=== PATIENT | male | born 1955 | race Caucasian/White ===

== ENCOUNTER → 2020-02-18 09:31 | Outpatient (BNVA) | payer OTHER, SELFPAY | PROVIDERS: PCP Internal Medicine; Referring Provider Internal Medicine; Visit Provider Nurse Practitioner | DX: K59.04 Chronic idiopathic constipation (principal); Z80.0 Family history of malignant neoplasm of digestive organs | CPT/HCPCS: 99214 ==

== ENCOUNTER → 2020-03-03 11:22 | Outpatient (BNVA) | payer OTHER, SELFPAY | PROVIDERS: PCP Internal Medicine; Visit Provider Nurse Practitioner | DX: K59.04 Chronic idiopathic constipation (principal); Z80.0 Family history of malignant neoplasm of digestive organs | CPT/HCPCS: 99212 ==

== ENCOUNTER 2020-10-13 08:04 | Emergency (ER) | payer OTHER, MEDICAID, SELFPAY ==
--- NOTE | ~2020-10-13 | XR_ITS ---
EXAMINATION: XR KNEE, RIGHT CLINICAL INFORMATION: Right knee pain status post trauma. COMPARISON: None TECHNIQUE: Four views of the right knee. FINDINGS: There is no acute fracture or dislocation. Mild medial femoral-tibial and patellofemoral degenerative joint changes are seen. There is a possible trace suprapatellar joint effusion. The soft tissues are unremarkable. XR/XR knee RT 4V IMPRESSION: Mild degenerative joint changes and possible trace suprapatellar joint effusion without definitive acute osseous abnormality.
[2020-10-13 08:33] VITALS: BP 142/86; PULSE 80; RESP 16; TEMP 36.7; O2SAT 98; BMI 31.3
--- NOTE | 2020-10-13 08:59 | ED_ITS ---
HPI - Fall General Chief Complaint: Fall Stated Complaint: KNEE INJ FELL IN SHOWER Time Seen by Provider: 10/13/20 08:30 Source: patient Mode of arrival: ambulatory Limitations: no limitations History of Present Illness HPI Narrative: Patient presents to ED for right knee pain. Patient states he was in the shower this morning and slipped and turn his right knee. Patient denies falling to the ground. Patient denies hitting head or loss of consciousness. Patient denies any popping sound in the knee. Patient states right knee pain on ambulation ever since. Related Data Previous Rx's Medication Instructions Recorded linaclotide 145 mcg capsule 145 mcg PO DAILY #30 cap 06/15/20 naproxen 500 mg PO BID PRN #20 tab 10/13/20 prednisone 40 mg PO DAILY #10 tab 10/13/20 Allergies Allergy/AdvReac Type Severity Reaction Status Date / Time ketoconazole Allergy Intermediate rash Verified 05/18/20 10:32 penicillin V Allergy Intermediate rash Verified 05/18/20 10:32 quetiapine Allergy Intermediate tachycardia Verified 05/18/20 10:32 Review of Systems Review of Systems: Yes all other systems are reviewed and are negative Constitutional: Constitutional: Reports as per HPI and Reports no additional constitutional complaints Eyes: Eyes: Reports as per HPI and Reports no additional eye complaints ENT: Reports system reviewed and no additional complaints, except as documented and Reports as per HPI Cardiovascular: Cardiovascular: Reports as per HPI and Reports no additional cardiovascular complaints Respiratory: Respiratory: Reports as per HPI and Reports no additional respiratory complaints Gastrointestinal: Gastrointestinal: Reports as per HPI and Reports no additional gastrointestinal complaints Genitourinary: Genitourinary: Reports no additional male genitourinary complaints and Reports as per HPI Musculoskeletal: Musculoskeletal: Reports no additional musculoskeletal complaints, Reports as per HPI and Reports arthralgias (Right knee) Neurologic: Reports system reviewed and no additional complaints, except as documented and Reports as per HPI Psychiatric: Psychiatric: Reports no additional psychiatric complaints and Reports as per HPI PMF Past Medical History Medical History (Updated 10/13/20 @ 09:12 by HOMER Gaytan) BPH (benign prostatic hyperplasia) Chronic back pain Chronic idiopathic constipation Cocaine use Depression with anxiety Fibromyalgia Impaired fasting glucose Insomnia Tubular adenoma of colon Surgical History (Updated 05/18/20 @ 10:31 by Ilda Davenport) H/O colonoscopy Family History Family History (Updated 03/03/20 @ 11:36 by ASH Le) Father Myocardial infarction Sister Colon cancer Kidney disease Brother Cirrhosis Sister Diabetes Brother Partial sight in both eyes Mother No problems noted. Social History Social History (Updated 03/03/20 @ 11:33 by ASH Le) Alcohol intake: never Use of substances other than those prescribed or required for medical reasons: No Advance Directives: Yes Advance Directives Information Provided: Yes Advance Directives on File: No Physical Exam Vital Signs: Vital Signs: Last Vital Signs Temp 98.0 F 10/13/20 08:33 Pulse 80 10/13/20 08:33 Resp 16 10/13/20 08:33 BP 142/86 H 10/13/20 08:33 Pulse Ox 98 10/13/20 08:33 Body Mass Index 31.3 Const: General: cooperative, healthy appearing, comfortable, no acute distress, well developed, alert, awake and Physically active Orientation/consciousness: patient oriented x3 HENMT: Head: Yes normal to inspection, Yes No palpable skull fracture present, Yes normocephalic and Yes atraumatic Eyes: General: appearance normal, both eyes and all related structures Neck: Neck: Yes normal visual inspection, Yes full ROM, Yes no lymphadenopathy, Yes no meningeal signs, Yes trachea midline, Yes supple and No tender Chest: Chest palpation & inspection: normal inspection of the chest and normal palpation of entire chest wall Resp: Effort & Inspection: normal respiratory effort and able to speak in complete sentences Auscultation: clear to auscultation bilaterally Cardio: Jugular venous distension: no JVD Heart sounds: S1 normal heart sound present and S2 normal heart sound present GI: Inspection: Yes normal to inspection and No abdominal wall ecchymosis Palpation (GI): Soft to palpation, not firm, nontender, no guarding and not rigid : General: No CVA tenderness and Yes no CVA tenderness Back/Spine/Pelvis: Back: no CVA tenderness, No CVA tenderness and No back tenderness Skin: General skin exam: no rashes or lesions noted and elasticity normal Neuro: General: patient oriented x3, gait normal, no meningeal signs and CN's II-XI intact bilaterally Cranial nerves: Yes CN's II-XII intact bilaterally Extrem: Other: Right lower extremity: Positive for medial knee tenderness on palpation with slight swelling. Negative for redness of knee or decreased range of motion of knee. Negative for hotness of knee. Negative for obvious deformity. Leg/ankle/ foot/femur, negative for tenderness, deformity, redness, hotness or open wound. Vascular/motor/neuro exam extremity intact. All other e xtremities normal General: Yes normal to inspection and Yes full ROM Psych: Appearance: grossly normal, well kempt and not disheveled Course Course Course Narrative: Patient was sent for right knee x-ray. Reevaluation(s) Reevaluation #1: Right knee negative for fracture but does show osteoarthritis and slight knee trace effusion. No indication for arthrocentesis. Patient was placed in [place]ino wrap. MDM - Fall MDM Narrative Medical decision making narrative: Knee sprain Discharge Plan Discharge Clinical Impression: Right knee sprain, Arthritis, Effusion of knee Patient Disposition: Home, Self-Care Instructions: Knee Sprain (ED), Arthritis (ED) Additional Instructions: Return to the ED for worsening knee pain, hardness, redness, increased swelling, inability to bend knee, fever, chills, leg swelling calf pain, chest pain, shortness of breath, paralysis of lower extremities, inability to walk, or any other concerning symptoms. Prescriptions: New naproxen 500 mg tablet 500 mg PO BID PRN (Reason: pain) Qty: 20 RF: 0 prednisone 20 mg tablet 40 mg PO DAILY Qty: 10 RF: 0 No Action linaclotide [Linzess] 145 mcg capsule 145 mcg PO DAILY Qty: 30 RF: 3 Referrals: Casper Espinoza MD [Physician] - 2 days (Right knee sprain. arthritis and mild knee effusion) Stand Alone Forms: Work/School Release Interventions: ED Discharge Assessment Last Done: 10/13/20 09:22 Discharge Date/Time: 10/13/20 09:26 Print Language: Colombian
== END 2020-10-13 09:26 | disposition home or self-care (01) ==
PROVIDERS: Emergency Provider Emergency Medicine Emergency Medical Services; PCP Internal Medicine
DX: S83.91XA Sprain of unspecified site of right knee, initial encounter (principal); W18.2XXA Fall in (into) shower or empty bathtub, initial encounter; M17.11 Unilateral primary osteoarthritis, right knee; M25.461 Effusion, right knee; Y93.E1 Activity, personal bathing and showering; Y92.031 Bathroom in apartment as the place of occurrence of the external cause; Y99.9 Unspecified external cause status
CPT/HCPCS: 73564; 99283; 99284

== ENCOUNTER → 2020-10-24 14:05 | Outpatient (BNVA) | payer OTHER, MEDICAID, SELFPAY | PROVIDERS: Visit Provider Physician Assistant | DX: M17.11 Unilateral primary osteoarthritis, right knee (principal) | CPT/HCPCS: 99202 ==

== ENCOUNTER 2021-02-06 09:34 | Emergency (ER) | payer OTHER, MEDICAID, SELFPAY ==
--- NOTE | ~2021-02-06 | CT_ITS ---
EXAMINATION: CT angio head neck CLINICAL INFORMATION: Neck pain and headaches. Evaluate for dissection. COMPARISON: No relevant prior imaging. TECHNIQUE: Word[employer] Developer images were obtained. A CT angiogram of the head and neck was performed in the arterial phase after the intravenous administration of 70 mL Omnipaque 350. Pre and delayed postcontrast images of the head were also obtained. MIP reconstructions were generated in multiple orientations at the acquisition workstation. Multiple three-dimensional surface rendered images and maximum intensity projection images were generated on a dedicated 3-D lab workstation. Arterial stenoses are measured in accordance with NASCET criteria or similar method if applicable. This CT examination was performed using dose optimization techniques as appropriate, including one or more of the following: Automated exposure control, iterative reconstruction, and adjustment of technique factors (mA and/or kVp) according to patient size (this includes techniques or standardized protocols for targeted exams where dose is matched to indication/reason for exam). Total exam dose-length product 2422 mGy-cm FINDINGS: Head: There is no acute intracranial hemorrhage or abnormal extra-axial collection. Postcontrast images reveal no abnormal mass or enhancement within the intracranial compartment. No intracranial mass effect midline shift. No abnormal extra-axial collection. Lateral and third ventricles are normal. No hydrocephalus. Garcia-white matter differentiation is preserved and there is no evidence of acute territorial infarct. The calvarium and skull base are intact. Mastoid air cells and middle ear cavities are well aerated. Mild paranasal sinus disease primarily affecting the ethmoid air cells and maxillary sinuses. CT angiogram neck: The aortic arch apex is normal. Origins of the major aortic branches are widely patent. Common carotid arteries and carotid bifurcations are patent. No stenosis of the extracranial internal carotid arteries. Cervical segments of the vertebral arteries as well as their origins are patent. CT angiogram head: Intracranial internal carotid arteries are patent. The intradural vertebral artery segments and basilar artery are patent. Anterior, middle, and posterior cerebral artery complexes are normal. No intracranial large vessel occlusion. Other: Soft tissues of the neck including the thyroid gland are normal. Visualized lung apices are clear. No acute osseous finding. Specifically no worrisome lytic or blastic osseous lesion. There is multilevel degenerative spondylosis of the cervical spine with at least mild canal stenosis at multiple levels. CT/CT angio head neck IMPRESSION: There is no stenosis of the cervical carotid or vertebral arteries. No intracranial large vessel occlusion. No evidence of acute vascular dissection. There is no evidence of acute territorial infarct or hemorrhage. No abnormal intracranial mass or enhancement. Of note there is multilevel degenerative spondylosis of the cervical spine causing at least mild canal stenosis at multiple levels. If there are clinical symptoms of compressive myelopathy then a dedicated cervical spine MRI can be obtained for better anatomic characterization of the cord and canal.
[2021-02-06 10:09] VITALS: BP 105/67; PULSE 51; RESP 18; TEMP 36.1; O2SAT 97; BMI 30.7
[2021-02-06 10:29] VITALS: BP 117/72; PULSE 46; RESP 15; TEMP 36.5; O2SAT 98
--- NOTE | 2021-02-06 10:32 | ED.GENADULT ---
HPI - General Adult General Chief complaint: General Medical Stated complaint: groin & neck pain Time Seen by Provider: 02/06/21 10:32 Source: patient Mode of arrival: ambulatory Limitations: no limitations History of Present Illness HPI narrative: 65 y/o male with history of depression presenting with 4 days of neck pain and right groin pain. The pain in his neck started when he was doing stretching exercises. He felt the sensation like his neck bones touched and he had pain in his neck and head. He also had some numbness in his toes at the time which is now resolved. His neck pain worsened for 2 days but is now better. He no longer has a headache. Pain is located on both sides of the back of his neck and is worse when he rotates his head to the right. He also reports after a 2 mile run he woke up the next morning with right groin pain and soreness, worse with walking and stretching. No urinary symptoms or testicular pain, no abdominal pain, N/V/D. Overall both of his pains are improved but he came to get checked out. MD complaint: neck pain and right groin pain Onset (ago): day(s) (4) Location: neck, right and lower extremity Radiation: non-radiation Severity: moderate Severity scale (1-10): 5 Quality: aching Pain Consistency: intermittent Relieving factors: rest Exacerbating factors: movement Associated symptoms: denies other symptoms Treatments prior to arrival: none Related Data Home Medications Medication Instructions Recorded Confirmed azithromycin 250 mg tablet 250 mg PO DIRECTED 10/24/20 clindamycin HCl 300 mg capsule 300 mg PO TID 10/24/20 escitalopram oxalate 20 mg tablet 20 mg PO DAILY 10/24/20 fluticasone propionate 50 1 spray INTRANASAL DAILY 10/24/20 mcg/actuation nasal spray,suspension trazodone 50 mg tablet 50 mg PO BEDTIME 10/24/20 Previous Rx's Medication Instructions Recorded linaclotide 145 mcg capsule 145 mcg PO DAILY #30 cap 06/15/20 (Linzess) naproxen 500 mg tablet 500 mg PO BID PRN #20 tab 10/13/20 prednisone 20 mg tablet 40 mg PO DAILY #10 tab 10/13/20 cyclobenzaprine 5 mg tablet 5 mg PO TID PRN #14 tab 02/06/21 lidocaine 5 % topical patch 1 patch TOPICAL DAILY #15 ea 02/06/21 (Lidoderm) Allergies Allergy/AdvReac Type Severity Reaction Status Date / Time ketoconazole Allergy Intermediate rash Verified 02/06/21 10:09 quetiapine Allergy Intermediate tachycardia Verified 02/06/21 10:09 Review of Systems Review of Systems: Constitutional: No Fever, No Chills ENT/Mouth: No sore throat, No Rhinorrhea, No Swallowing Difficulty Eyes: No Eye Pain, No Swelling, No Redness Cardiovascular: No Chest Pain, No SOB, No Orthopnea, No Edema Respiratory: No Cough, No Sputum, No Wheezing, No dyspnea Gastrointestinal: No Nausea, No Vomiting, No Diarrhea, No abdominal Pain, No Hematochezia, No Melena Genitourinary: No Dysuria, No Urinary Frequency, No Hematuria, No testicular pain Musculoskeletal: + joint pain, + Myalgias Skin: No Skin Lesions, No rash Neuro: No Weakness, + Numbness, No Dizziness, + Headache Psych: No Anxiety/Panic, No Depression Heme/Lymph: No Bruising, No Lymphadenopathy Endocrine: No Polyuria, No Polydipsia PMFSH Past Medical History Medical History BPH (benign prostatic hyperplasia) Chronic back pain Chronic idiopathic constipation Cocaine use Depression with anxiety Fibromyalgia Impaired fasting glucose Insomnia Tubular adenoma of colon Surgical History H/O colonoscopy Family History Family History Father Myocardial infarction Sister Colon cancer Kidney disease Brother Cirrhosis Sister Diabetes Brother Partial sight in both eyes Mother No problems noted. Social History Social History (Updated 10/24/20 @ 14:10 by ASH Chávez) Alcohol intake: former Patient Tobacco Use Status: Never used Tobacco Use of substances other than those prescribed or required for medical reasons: No Advance Directives: No Advance Directives Information Provided: Yes Current occupational status: retired Physical Exam Vital Signs: Vital Signs: Last Vital Signs Temp 97.7 F 02/06/21 10:29 Pulse 45 L 02/06/21 12:31 Resp 14 02/06/21 12:31 BP 121/76 02/06/21 12:31 Pulse Ox 96 02/06/21 12:31 Body Mass Index 30.7 Appearance: Alert. Oriented X3. No acute distress. Eyes: Pupils equal, round and reactive to light. ENT: Pharynx normal. Neck: Normal inspection. Neck supple. No cervial spinal tenderness. Mild soft tissue tenderness of the posterior neck, no palpable spasm CVS: Bradycardic, regular rhythm. Pulses normal. Respiratory: No respiratory distress. Breath sounds normal. Abdomen: Soft and nontender. +BS x4 Genitalia: normal inspection, normal descended testes, nontender. no palpable hernia Skin: Skin warm and dry. Normal skin color. Normal skin turgor. No rashes. Extremities: No lower extremity edema. Right inguinal area is normal to inspection, nontender, no masses or skin changes. Neuro: Oriented X 3. No motor deficit. No sensory deficit. Steady gait, non-focal. Strength symmetrical and equal throughout Course Course Course Narrative: 65 y/o male presenting to the ER with neck pain and right groin pain after working out 4 days ago. Symptoms overall are improving. Most likely muscular pains but given his presentation will have to rule out dissection. His neuro exam is non-focal. HR 40-50s, sinus demetria with normal BP. Not on BB. He reports running several times per week. This is likely his baseline. Will get CTA head/neck, labs and monitor on telemetry. Reevaluation(s) Reevaluation #1: CTA head/neck did not show any LVO, no arterial dissection. There is some multilevel degenerative spondylosis of the cervical spine causing at least mild canal stenosis at multiple levels. He has normal ROM of the spine, no numbness, tingling, or focal neurologic findings. He is stable for discharge home with plan to follow up with his provider. Will treat for acute muscle strain. Patient agrees with plan. Medical Decision Making Lab Data Result diagrams: 02/06/21 10:54 02/06/21 10:54 Labs: Lab Results 02/06/21 02/06/21 02/06/21 Range/Units 10:54 10:54 10:54 WBC 3.2 L (4.8-10.8) X10*3/uL RBC 4.70 (4.60-5.80) X10*6/uL Hgb 14.2 (14.0-18.0) g/dl Hct 39.5 L (42-52) % MCV 84.0 (80-98) fL MCH 30.2 (27.0-33.0) pg MCHC 35.9 (31.0-36.0) g/dl RDW 12.5 (11.0-16.0) % Plt Count 190 (160-400) X10*3/uL MPV 10.7 (9.4-12.4) fL Immature Gran % (Auto) 0.3 (0.0-0.4) % Neut % (Auto) 36.9 L (45-73) % Lymph % (Auto) 43.8 H (20-40) % Adams % (Auto) 12.7 H (2-11) % Eos % (Auto) 5.7 H (0-4) % Baso % (Auto) 0.6 (0-2) % Lymph # (Auto) 1.4 (1.2-4.9) X10*3/uL Adams # (Auto) 0.4 (0.1-1.2) X10*3/uL Eos # (Auto) 0.2 (0.0-0.4) X10*3/uL Baso # (Auto) 0.0 (0.0-0.2) X10*3/uL Abs Immat Gran (auto) 0.01 (0.00-0.03) X10*3/uL Absolute Neuts (auto) 1.2 L (2.0-8.3) X10*3/uL Absolute Nucleated RBC 0.000 (0.0-0.012) X10*3/uL Nucleated RBC % (auto) 0.0 (0.0-0.2) /100WBC PT 13.7 H (9.9-13.0) SEC INR 1.2 H (0.9-1.1) APTT 40.8 H (24.1-38.0) SEC Sodium 140 (135-145) mmol/L Potassium 4.5 (3.3-5.1) mmol/L Chloride 106 (96-108) mmol/L Carbon Dioxide 29 (22-29) mmol/L Anion Gap 10 L (12-20) BUN 14 (9-16) mg/dL Creatinine 0.90 (0.5-1.4) mg/dL Estim Creat Clear Calc 84.7 Estimated GFR > 60 Random Glucose 87 (60-115) mg/dL Calcium 9.7 (8.4-10.2) mg/dL Urine Color Urine Appearance Urine pH (5.0-8.0) Ur Specific [place] (1.005-1.025) Urine Protein (NEG-TRACE) MG/DL Urine Glucose (UA) (NEG) MG/DL Urine Ketones (NEG) MG/DL Urine Blood (NEG) Urine Nitrite (NEG) Ur Leukocyte Esterase (NEG) 02/06/21 Range/Units 12:30 WBC (4.8-10.8) X10*3/uL RBC (4.60-5.80) X10*6/uL Hgb (14.0-18.0) g/dl Hct (42-52) % MCV (80-98) fL MCH (27.0-33.0) pg MCHC (31.0-36.0) g/dl RDW (11.0-16.0) % Plt Count (160-400) X10*3/uL MPV (9.4-12.4) fL Immature Gran % (Auto) (0.0-0.4) % Neut % (Auto) (45-73) % Lymph % (Auto) (20-40) % Adams % (Auto) (2-11) % Eos % (Auto) (0-4) % Baso % (Auto) (0-2) % Lymph # (Auto) (1.2-4.9) X10*3/uL Adams # (Auto) (0.1-1.2) X10*3/uL Eos # (Auto) (0.0-0.4) X10*3/uL Baso # (Auto) (0.0-0.2) X10*3/uL Abs Immat Gran (auto) (0.00-0.03) X10*3/uL Absolute Neuts (auto) (2.0-8.3) X10*3/uL Absolute Nucleated RBC (0.0-0.012) X10*3/uL Nucleated RBC % (auto) (0.0-0.2) /100WBC PT (9.9-13.0) SEC INR (0.9-1.1) APTT (24.1-38.0) SEC Sodium (135-145) mmol/L Potassium (3.3-5.1) mmol/L Chloride (96-108) mmol/L Carbon Dioxide (22-29) mmol/L Anion Gap (12-20) BUN (9-16) mg/dL Creatinine (0.5-1.4) mg/dL Estim Creat Clear Calc Estimated GFR Random Glucose (60-115) mg/dL Calcium (8.4-10.2) mg/dL Urine Color YELLOW Urine Appearance CLEAR Urine pH 6.0 (5.0-8.0) Ur Specific [place] 1.010 (1.005-1.025) Urine Protein NEG (NEG-TRACE) MG/DL Urine Glucose (UA) NEG (NEG) MG/DL Urine Ketones NEG (NEG) MG/DL Urine Blood NEG (NEG) Urine Nitrite NEG (NEG) Ur Leukocyte Esterase NEG (NEG) ECG Data Attestation: I personally reviewed and interpreted this ECG as follows: Interpretation: sinus bradycardia, HR 45 bpm, normal DE interval, no ST segment elevations or depressions - bradycardia is new from 2007 Critical Care Time Critical Care Time Critical Care Time: No Discharge Plan Discharge Clinical Impression: Cervical muscle strain Qualifiers: Encounter type: initial encounter Qualified Code(s): S16.1XXA - Strain of muscle, fascia and tendon at neck level, initial encounter Strain of groin Qualifiers: Encounter type: initial encounter Laterality: right Qualified Code(s): S76.211A - Strain of adductor muscle, fascia and tendon of right thigh, initial encounter Patient Disposition: Home, Self-Care Instructions: Cervical Strain (ED), Groin Strain (ED) Additional Instructions: Your pain is most likely due to muscle strain. Your lab workup was unremarkable. Your CT did not show any abnormalities of the vessels in your head or neck. Recommend following up with your doctor. Rest. No strenuous activity until you are feeling back to normal. Take the prescribed mediaction as needed. If you develop new or worsening symptoms call 911 or come back to the ER for further evaluation. Lo m?s probable es que dixon dolor se deba a dinesh distensi?n muscular. Dixon an?lisis de laboratorio no tuvo nada especial. Dixon tomograf?a computarizada no mostr? ninguna anomal?a de los vasos en dixon arnold o jeanmarie. Recomiende hacer un seguimiento con dixon m?dico. Descansar. No realice ninguna actividad intensa hasta que se sienta de nuevo a la normalidad. [place] la mediaci?n prescrita seg?n sea necesario. Si presenta s?ntomas nuevos o que empeoran, llame al 911 o regrese a la pedro de emergencias para dinesh evaluaci?n adicional. Prescriptions: New lidocaine [Lidoderm] 5 % adhesive patch,medicated 1 patch topical DAILY Qty: 15 RF: 0 cyclobenzaprine 5 mg tablet 5 mg PO TID PRN (Reason: muscle spasm) Qty: 14 RF: 0 No Action linaclotide [Linzess] 145 mcg capsule 145 mcg PO DAILY Qty: 30 RF: 3 naproxen 500 mg tablet 500 mg PO BID PRN (Reason: pain) Qty: 20 RF: 0 prednisone 20 mg tablet 40 mg PO DAILY Qty: 10 RF: 0 clindamycin HCl 300 mg capsule 300 mg PO TID RF: 0 escitalopram oxalate 20 mg tablet 20 mg PO DAILY RF: 0 trazodone 50 mg tablet 50 mg PO BEDTIME RF: 0 fluticasone propionate 50 mcg/actuation spray,suspension 1 spray intranasal DAILY RF: 0 azithromycin 250 mg tablet 250 mg PO DIRECTED RF: 0 Referrals: Hernan Dowd MD [Primary Care Provider] - 2 days Stand Alone Forms: Work/School Release Interventions: ED Discharge Assessment Last Done: 02/06/21 13:24 Discharge Date/Time: 02/06/21 13:25 Print Language: Thai
--- NOTE | 2021-02-06 10:45 | ECG_ITS ---
Test Reason : GENERAL MEDICINE Blood Pressure : / mmHG Vent. Rate : 045 BPM Atrial Rate : 045 BPM P-R Int : 138 ms QRS Dur : 086 ms QT Int : 452 ms P-R-T Axes : 000 -13 -11 degrees QTc Int : 390 ms Sinus bradycardia Abnormal ECG When compared with ECG of 04-APR-2008 19:40, Heart rate has decreased Referred By: Lizet Uriarte Electronically Signed By:STEPHANE MARKHAM
[2021-02-06 11:08] LABS: MANUAL DIFF FLAG NO
[2021-02-06 11:10] LABS: Basophils Percent Auto 0.6 % (0-2); Eosinophils Absolute Auto 0.2 X10*3/uL (0.0-0.4); Eosinophils Percent Auto 5.7 % (0-4); Hematocrit 39.5 % (42-52); Hemoglobin 14.2 g/dl (14.0-18.0); Imm Gran Abs Auto 0.01 X10*3/uL (0.00-0.03); Imm Gran Pct Auto 0.3 % (0.0-0.4); Lymphocytes Absolute Auto 1.4 X10*3/uL (1.2-4.9); Lymphocytes Percent Auto 43.8 % (20-40); Mean Corpuscular HGB Conc 35.9 g/dl (31.0-36.0); Mean Corpuscular Hemoglobin 30.2 pg (27.0-33.0); Mean Platelet Volume 10.7 fL (9.4-12.4); Monocytes Absolute Auto 0.4 X10*3/uL (0.1-1.2); Monocytes Percent Auto 12.7 % (2-11); Neutrophils Absolute Auto 1.2 X10*3/uL (2.0-8.3); Neutrophils Percent Auto 36.9 % (45-73); Platelet Count 190 X10*3/uL (160-400); Red Cell Distribution Width 12.5 % (11.0-16.0); White Blood Count 3.2 X10*3/uL (4.8-10.8)
[2021-02-06 11:16] LABS: INTERNATIONAL NORM RATIO 1.2 (0.9-1.1); Prothrombin Time 13.7 SEC (9.9-13.0)
[2021-02-06 11:18] LABS: Partial Thromboplastin Time 40.8 SEC (24.1-38.0)
[2021-02-06 11:22] LABS: Anion Gap 10 (12-20); Blood Urea Nitrogen 14 mg/dL (9-16); Calcium 9.7 mg/dL (8.4-10.2); Carbon Dioxide 29 mmol/L (22-29); Chloride 106 mmol/L (96-108); Creatinine Clr Calc Pharmacy 84.7; Estimated Glomerular Filt Rate > 60; Glucose Random 87 mg/dL (60-115); Potassium 4.5 mmol/L (3.3-5.1); Sodium 140 mmol/L (135-145)
[2021-02-06] MEDS: iohexoL 350 MG/ML 100 ML INFUS..BTL 70 ML IV (11:43)
[2021-02-06 12:31] VITALS: BP 121/76; PULSE 45; RESP 14; O2SAT 96
[2021-02-06 12:38] LABS: Appearance Urine CLEAR; Color Urine YELLOW; Glucose Urine UA NEG (NEG); Leukocyte Esterase Urine NEG (NEG); Nitrite Urine NEG (NEG); Urine Blood NEG (NEG); Urine Ketones NEG (NEG); Urine Protein NEG (NEG-TRACE)
== END 2021-02-06 13:25 | disposition home or self-care (01) ==
PROVIDERS: Physician Assistant; Emergency Provider Emergency Medicine; PCP Internal Medicine
DX: S16.1XXA Strain of muscle, fascia and tendon at neck level, initial encounter (principal); S76.211A Strain of adductor muscle, fascia and tendon of right thigh, initial encounter; F33.1 Major depressive disorder, recurrent, moderate; R10.30 Lower abdominal pain, unspecified; M54.2 Cervicalgia; X58.XXXA Exposure to other specified factors, initial encounter; Y93.9 Activity, unspecified; Y92.9 Unspecified place or not applicable; Y99.9 Unspecified external cause status; Z79.899 Other long term (current) drug therapy
CPT/HCPCS: 36415; 70496; 70498; 80048; 81003; 85025; 85610; 85730; 93005; 99284; 99285; Q9967

== ENCOUNTER 2021-04-13 08:24 | Emergency (ER) | payer OTHER, MEDICAID, SELFPAY ==
[2021-04-13 09:04] VITALS: BP 124/85; PULSE 50; RESP 18; TEMP 36.2; O2SAT 99; BMI 30.7
--- NOTE | 2021-04-13 09:14 | ED.EXTPRO ---
HPI - Extremity Problem General Chief complaint: Extremity Problem <Darren Gutiérrez MD - Last Filed: 04/13/21 09:46> Stated complaint: r big toe inflamation <Darren Gutiérrez MD - Last Filed: 04/13/21 09:46> Time Seen by Provider: 04/13/21 09:14 <Darren Gutiérrez MD - Last Filed: 04/13/21 09:46> Source: patient <HOMER Santana - Last Filed: 04/13/21 09:53> Mode of arrival: ambulatory <HOMER Santana - Last Filed: 04/13/21 09:53> Limitations: no limitations <HOMER Santana - Last Filed: 04/13/21 09:53> History of Present Illness HPI Narrative: 66-year-old male presents for great left toe pain for the last 10 days. Patient can walk on his right foot, but his toe is painful. It feels burning. He has not had any trauma. No history of gout. No fevers, no chest pain, shortness of breath, abdominal pain. <HOMER Santana - Last Filed: 04/13/21 09:53> Related Data Home medications: Home Medications Medication Instructions Recorded Confirmed azithromycin 250 mg tablet 250 mg PO DIRECTED 10/24/20 clindamycin HCl 300 mg capsule 300 mg PO TID 10/24/20 escitalopram oxalate 20 mg tablet 20 mg PO DAILY 10/24/20 fluticasone propionate 50 1 spray INTRANASAL DAILY 10/24/20 mcg/actuation nasal spray,suspension trazodone 50 mg tablet 50 mg PO BEDTIME 10/24/20 Previous Rx's Medication Instructions Recorded linaclotide 145 mcg capsule 145 mcg PO DAILY #30 cap 06/15/20 (Linzess) naproxen 500 mg tablet 500 mg PO BID PRN #20 tab 10/13/20 prednisone 20 mg tablet 40 mg PO DAILY #10 tab 10/13/20 cyclobenzaprine 5 mg tablet 5 mg PO TID PRN #14 tab 02/06/21 lidocaine 5 % topical patch 1 patch TOPICAL DAILY #15 ea 02/06/21 (Lidoderm) cephalexin 500 mg capsule 500 mg PO QID 7 Days #28 cap 04/13/21 <Darren Gutiérrez MD - Last Filed: 04/13/21 09:46> Allergies/Adverse reactions: Allergies Allergy/AdvReac Type Severity Reaction Status Date / Time ketoconazole Allergy Intermediate rash Verified 02/06/21 10:09 quetiapine Allergy Intermediate tachycardia Verified 02/06/21 10:09 <Darren Gutiérrez MD - Last Filed: 04/13/21 09:46> Review of Systems Constitutional: Constitutional: Denies body ache(s), Denies chills, Denies fatigue, Denies fever(s), Denies headache(s), Denies malaise and Denies weakness <HOMER Santana Last Filed: 04/13/21 09:53> Eyes: Eyes: Denies diplopia <HOMER Santana Last Filed: 04/13/21 09:53> ENT: Denies vertigo, Denies dizziness, Denies otalgia, Denies headache(s), Denies mouth pain, Denies post nasal drip, Denies sinus pain, Denies sinus pressure, Denies sore throat and Denies throat swelling <HOMER Santana - Last Filed: 04/13/21 09:53> Cardiovascular: Cardiovascular: Denies chest pain, Denies syncope, Denies leg edema, Denies lightheadedness, Denies Loss of Consciousness, Denies palpitations and Denies dyspnea <HOMER Santana Last Filed: 04/13/21 09:53> Respiratory: Respiratory: Denies chest congestion, Denies cough and Denies dyspnea <HOMER Santana Last Filed: 04/13/21 09:53> Gastrointestinal: Gastrointestinal: Denies abdominal pain, Denies hematochezia, Denies constipation, Denies diarrhea and Denies vomiting <HOMER Santana Last Filed: 04/13/21 09:53> Musculoskeletal: Musculoskeletal: Reports no additional musculoskeletal complaints <HOMER Santana Last Filed: 04/13/21 09:53> Integumentary/Breasts: Skin/Breast: Reports swelling, Reports erythema and Reports skin swelling <HOMER Santana Last Filed: 04/13/21 09:53> Neurologic: Denies confusion, Denies vertigo, Denies dizziness, Denies syncope, Denies headache(s) and Denies weakness <HOMER Santana - Last Filed: 04/13/21 09:53> Psychiatric: Psychiatric: Denies anxiety, Denies confusion and Denies depression <HOMER Santana - Last Filed: 04/13/21 09:53> Endocrine: Endocrine: Denies fatigue and Denies palpitations <HOMER Santana - Last Filed: 04/13/21 09:53> Allergic/Immunologic: Allergic/Immunologic: Denies throat swelling <HOMER Santana - Last Filed: 04/13/21 09:53> [facility] Past Medical History Medical History: Medical History BPH (benign prostatic hyperplasia) Chronic back pain Chronic idiopathic constipation Cocaine use Depression with anxiety Fibromyalgia Impaired fasting glucose Insomnia Tubular adenoma of colon <Darren Gutiérrez MD - Last Filed: 04/13/21 09:46> Surgical History: Surgical History H/O colonoscopy <Darren Gutiérrez MD - Last Filed: 04/13/21 09:46> Family History Family History: Family History Father Myocardial infarction Sister Colon cancer Kidney disease Brother Cirrhosis Sister Diabetes Brother Partial sight in both eyes Mother No problems noted. <Darren Gutiérrez MD - Last Filed: 04/13/21 09:46> Social History Social History: Social History Alcohol intake: former Patient Tobacco Use Status: Never used Tobacco Advance Directives: No Advance Directives Information Provided: Yes Current occupational status: retired <Darren Gutiérrez MD - Last Filed: 04/13/21 09:46> Physical Exam Vital Signs: Vital Signs: Last Vital Signs Temp 97.2 F 04/13/21 09:04 Pulse 50 04/13/21 09:04 Resp 18 04/13/21 09:04 BP 124/85 04/13/21 09:04 Pulse Ox 99 04/13/21 09:04 BMI result Body Mass Index 30.7 <Darren Gutiérrez MD - Last Filed: 04/13/21 09:46> Vital Signs: Last Vital Signs Temp 97.2 F 04/13/21 09:04 Pulse 50 04/13/21 09:04 Resp 18 04/13/21 09:04 BP 124/85 04/13/21 09:04 Pulse Ox 99 04/13/21 09:04 BMI result Body Mass Index 30.7 <Fouzia Anton [facility] Last Filed: 04/13/21 09:53> Const: General: No confusion <Fouzia Anton [place] - Last Filed: 04/13/21 09:53> Nutritional Appearance: well nourished <Fouzia Anton [facility] Last Filed: 04/13/21 09:53> Orientation/consciousness: No confusion <Fouzia Anton [facility] Last Filed: 04/13/21 09:53> Limitations: no limitations <Fouzia Anton [facility] Last Filed: 04/13/21 09:53> HENMT: Head: Yes normal to inspection, Yes normocephalic and Yes atraumatic <Fouzia Anton [place] - Last Filed: 04/13/21 09:53> Ears: hearing grossly normal bilaterally, external ears normal, TM's normal bilaterally and EAC's normal <Fouzia Anton [place] - Last Filed: 04/13/21 09:53> General nose exam: Normal external nose present <Fouzia Anton [facility] Last Filed: 04/13/21 09:53> Face and sinus: Yes normal facial exam and Yes sinuses nontender <Fouzia Anton [facility] Last Filed: 04/13/21 09:53> Mouth: Normal oral and palatal mucosa present <Fouzia Anton [facility] Last Filed: 04/13/21 09:53> Throat: Yes posterior oropharynx normal <Fouzia Anton [facility] Last Filed: 04/13/21 09:53> Eyes: Conjunctivae: conjunctivae normal <HOMER Santana - Last Filed: 04/13/21 09:53> Pupils: Equal, round and reactive pupils present <HOMER Santana Last Filed: 04/13/21 09:53> EOM: EOMs intact bilaterally <HOMER Santana - Last Filed: 04/13/21 09:53> Neck: Neck: Yes full ROM, Yes no lymphadenopathy and Yes supple <Fouzia Anton [facility] Last Filed: 04/13/21 09:53> Resp: Effort & Inspection: normal respiratory effort and able to speak in complete sentences <Fouzia Anton [facility] Last Filed: 04/13/21 09:53> Auscultation: clear to auscultation bilaterally, no crackles, no rales, no rhonchi and no wheezes <Fouzia Anton [facility] Last Filed: 04/13/21 09:53> Cardio: Rate: regular rate <Fouzia Anton [facility] Last Filed: 04/13/21 09:53> Rhythm: regular rhythm <Fouzia Anton [facility] Last Filed: 04/13/21 09:53> Heart sounds: S1 normal heart sound present and S2 normal heart sound present <Fouzia Anton [facility] Last Filed: 04/13/21 09:53> GI: Inspection: Yes normal to inspection <Fouzia Anton [facility] Filed: 04/13/21 09:53> Palpation (GI): Soft to palpation, nontender, no guarding and not rigid <Fouzia Anton [facility] Last Filed: 04/13/21 09:53> Percussion: Yes normal to percussion <Fouzia Anton [facility] Last Filed: 04/13/21 09:53> Auscultation: normal bowel sounds <Fouzia Anton [facility] Filed: 04/13/21 09:53> Skin: Other: Red, swollen, warm area on IP joint of great right toe dorsal aspect <Fouzia Anton [facility] Last Filed: 04/13/21 09:53> Neuro: General: No confusion <Fouzia Anton [facility] Last Filed: 04/13/21 09:53> Cranial nerves: Yes Equal, round and reactive pupils present <Fouzia Anton [facility] Last Filed: 04/13/21 09:53> Extrem: Right lower extremity: full ROM, normal capillary refill and foot Details: normal capillary refill, toes with normal ROM, warmth, vascular exam Details: dorsalis pedis pulse present, posterior tibial pulse present and normal capillary refill and motor-sensory exam; Negative for no crepitus <HOMER Santana - Last Filed: 04/13/21 09:53> Psych: Appearance: grossly normal <HOMER Santana - Last Filed: 04/13/21 09:53> Affect: normal affect <HOMER Santana - Last Filed: 04/13/21 09:53> Attitude: cooperative <HOMER Santana - Last Filed: 04/13/21 09:53> Thought process: Normal thought process present <HOMER Santana - Last Filed: 04/13/21 09:53> Course Course Course Narrative: 66-year-old male presents with 10 days of redness, swelling, pain, on dorsum of great right toe. Considered gout, however great right toe can range completely without pain, no tenderness to touch. Will start on Keflex, gave return precautions. <HOMER Santana - Last Filed: 04/13/21 09:53> Reevaluation(s) Reevaluation #1: I agree with history and plan, my physical his hot red toe, distal phalynx no pain with range of motion, will dc on keflex and treat for cellulitis <Darren Gutiérrez MD - Last Filed: 04/13/21 09:46> Time: 09:45 <Darren Gutiérrez MD - Last Filed: 04/13/21 09:46> Discharge Plan Discharge Clinical Impression: Cellulitis of great toe, right <Darren Gutiérrez MD - Last Filed: 04/13/21 09:46> Patient Disposition: Home, Self-Care <Darren Gutiérrez MD - Last Filed: 04/13/21 09:46> Instructions: Cellulitis (ED) <Darren Gutiérrez MD - Last Filed: 04/13/21 09:46> Additional Instructions: Please take your antibiotics every 6 hours for the next 7 days. Please call your primary care provider for follow-up appointment. Please know it will take 2 days for the antibiotics to start working. If you have fevers, worsening pain, or any other new or concerning symptoms please return to emergency department <Darren Gutiérrez MD - Last Filed: 04/13/21 09:46> Prescriptions: New cephalexin 500 mg capsule 500 mg PO QID 7 Days Qty: 28 RF: 0 No Action linaclotide [Linzess] 145 mcg capsule 145 mcg PO DAILY Qty: 30 RF: 3 naproxen 500 mg tablet 500 mg PO BID PRN (Reason: pain) Qty: 20 RF: 0 prednisone 20 mg tablet 40 mg PO DAILY Qty: 10 RF: 0 lidocaine [Lidoderm] 5 % adhesive patch,medicated 1 patch topical DAILY Qty: 15 RF: 0 cyclobenzaprine 5 mg tablet 5 mg PO TID PRN (Reason: muscle spasm) Qty: 14 RF: 0 clindamycin HCl 300 mg capsule 300 mg PO TID RF: 0 escitalopram oxalate 20 mg tablet 20 mg PO DAILY RF: 0 trazodone 50 mg tablet 50 mg PO BEDTIME RF: 0 fluticasone propionate 50 mcg/actuation spray,suspension 1 spray intranasal DAILY RF: 0 azithromycin 250 mg tablet 250 mg PO DIRECTED RF: 0 <Darren Gutiérrez MD - Last Filed: 04/13/21 09:46> Print Language: Filipino <Darren Gutiérrez MD - Last Filed: 04/13/21 09:46>
== END 2021-04-13 09:59 | disposition home or self-care (01) ==
PROVIDERS: Emergency Provider Emergency Medicine; PCP Internal Medicine
DX: L03.031 Cellulitis of right toe (principal)
CPT/HCPCS: 99283

== ENCOUNTER 2021-06-10 10:33 | Emergency (ER) | payer OTHER, SELFPAY ==
--- NOTE | ~2021-06-10 | XR_ITS ---
EXAMINATION: XR FOOT, LEFT CLINICAL INFORMATION: Make toe pain and swelling. COMPARISON: None TECHNIQUE: AP, lateral, and oblique views of the left foot. FINDINGS: There is no visible acute fracture, dislocation or subluxation. There is loss of PIP and DIP joints with periapical spurring consistent with degenerative arthritic changes. No soft tissue swelling. There is a small retrocalcaneal and calculi heel enthesophyte. The ankle mortise and subtalar joints are normal. XR/XR foot LT min 3V IMPRESSION: No visible acute fracture or dislocation. Especially no abnormality of the great toe. Small calcaneal heel and retrocalcaneal enthesophytes.
[2021-06-10 10:37] VITALS: BP 128/70; PULSE 50; RESP 19; TEMP 36.6; O2SAT 99; BMI 30.4
--- NOTE | 2021-06-10 11:15 | ED_ITS ---
HPI - Extremity Problem General Chief complaint: Extremity Injury, Lower Stated complaint: inflammation in left leg. Time Seen by Provider: 06/10/21 10:41 Source: patient Mode of arrival: ambulatory Limitations: other (Welsh Speaking ) History of Present Illness HPI Narrative: 66-year-old male who is Welsh-speaking who has a past medical history of cocaine abuse, BPH, insomnia, impaired fasting glucose, tubular adenoma of colon, fibromyalgia, depression with anxiety, chronic back pain and osteoarthritis presenting to the ED with complaints of left foot/great toe pain/swelling/redness for the past 4 days after he was working out. He reports that he is unsure if he actually injured his foot by hitting a pole possibly at work due to there are multiple poles there and he does not wear the best used. He reports the last time he was seen here on 04/13/2021 he was diagnosed with cellulitis and given of ?strong antibiotic? which took away his symptoms/redness/swelling. Therefore he is requesting these antibiotics again. He denies any history of gout that he is aware of. He denies any measured fevers, chills, dizziness, chest pain or shortness of breath, neck pain/stiffness, cough, sore throat, dyspnea on exertion, orthopnea, palpitations, nausea/vomiting/diarrhea constipation, abdominal pain, back pain, lower extremity edema or calf tenderness, recent travel or sick contacts or any other symptoms complaints or concerns at this time. MD Complaint: extremity pain and extremity swelling Onset (ago): day(s) (4) Pain Consistency: constant Location: left and lower extremity (Great toe) Quality: aching and constant Radiation: none Relieving factors: nothing Exacerbating factors: range of motion, weight bearing, walking and palpation Associated symptoms: denies other symptoms Related Data Home Medications Medication Instructions Recorded Confirmed azithromycin 250 mg tablet 250 mg PO DIRECTED 10/24/20 clindamycin HCl 300 mg capsule 300 mg PO TID 10/24/20 escitalopram oxalate 20 mg 20 mg PO DAILY 10/24/20 tablet fluticasone propionate 50 1 spray INTRANASAL DAILY 10/24/20 mcg/actuation nasal spray,suspension trazodone 50 mg tablet 50 mg PO BEDTIME 10/24/20 Previous Rx's Medication Instructions Recorded linaclotide 145 mcg capsule 145 mcg PO DAILY #30 cap 06/15/20 (Linzess) naproxen 500 mg tablet 500 mg PO BID PRN #20 tab 10/13/20 prednisone 20 mg tablet 40 mg PO DAILY #10 tab 10/13/20 cyclobenzaprine 5 mg tablet 5 mg PO TID PRN #14 tab 02/06/21 lidocaine 5 % topical patch 1 patch TOPICAL DAILY #15 ea 02/06/21 (Lidoderm) cephalexin 500 mg capsule 500 mg PO QID 7 Days #28 cap 04/13/21 cephalexin 500 mg capsule 500 mg PO Q8H 14 Days #42 cap 06/10/21 doxycycline hyclate 100 mg tablet 100 mg PO BID 14 Days #28 tab 06/10/21 ibuprofen 800 mg tablet 800 mg PO Q8H PRN #14 tab 06/10/21 Allergies Allergy/AdvReac Type Severity Reaction Status Date / Time ketoconazole Allergy Intermediate rash Verified 02/06/21 10:09 quetiapine Allergy Intermediate tachycardia Verified 02/06/21 10:09 Review of Systems Verdana 4l Review of Systems: Verdana 4d Verdana 4d Constitutional : No Weight loss, No Fever, No Chills, No Night Sweats, No Fatigue, No Malaise ENT/Mouth : No Hearing loss, No Ear Pain, No Nasal Congestion, No Sinus Pain, No Hoarseness, No sore throat, No Rhinorrhea, No Swallowing DifficultyDifficulty Eyes: No Eye Pain, No Swelling, No Redness, No Foreign Body, No Discharge, No Vision Changes Cardiovascular : No Chest Pain, No SOB, No Dyspnea on Exertion, No Orthopnea, No Edema, No Palpitations Respiratory : No Cough, No Sputum, No Wheezing, No Smoke Exposure, No Dyspnea Gastrointestinal : No Nausea, No Vomiting, No Diarrhea, No Constipation, No abdominal Pain, No Hematochezia, No Melena Genitourinary : no irregular bleeding, No Dysuria, No Urinary Frequency, No Hematuria, No Urinary Incontinence, No Urgency, No Flank Pain, No Urinary Flow Changes, No Hesitancy Musculoskeletal : + joint pain/swelling, No Myalgias Skin : No Skin Lesions, No rash Neuro : No Weakness, No Numbness, No Paresthesias, No Loss of Consciousness, No Dizziness, No Headache Psych : No Anxiety/Panic, No Depression, No SI/HI/AH/VH, No Social Issues, Heme/Lymph: No Bruising, No Bleeding,No Lymphadenopathy Endocrine : No Polyuria, No Polydipsia, No Temperature Intolerance Yes all other systems are reviewed and are negative [facility] Past Medical History Attestation statement: The following information was validated with the patient. Medical History BPH (benign prostatic hyperplasia) Chronic back pain Chronic idiopathic constipation Cocaine use Depression with anxiety Fibromyalgia Impaired fasting glucose Insomnia Tubular adenoma of colon Surgical History H/O colonoscopy Family History Family History Father Myocardial infarction Sister Colon cancer Kidney disease Brother Cirrhosis Sister Diabetes Brother Partial sight in both eyes Mother No problems noted. Social History Social History Alcohol intake: former Patient Tobacco Use Status: Never used Tobacco Advance Directives: No Advance Directives Information Provided: No Current occupational status: retired Physical Exam Verdana 4l Vital Signs: Verdana 4d Verdana 4d Vital Signs: Verdana 4d Verdana 4Bd Last Vital Signs Verdana 4d Electric Blanket Packer New 4d Electric Blanket Packer New 4d Temp 98 F 06/10/21 10:37 Electric Blanket Packer New 4d Pulse 50 06/10/21 10:37 Electric Blanket Packer New 4d Resp 19 06/10/21 10:37 BP 128/70 06/10/21 10:37 Pulse Ox 99 06/10/21 10:37 BMI result Body Mass Index 30.4 vital signs have been reviewed as normal and appeared to be correct. Blood pressure normal. Heart rate normal. Respiration rate normal. Temperature normal. Oxygen saturation normal. Appearance: Alert. Oriented X3. No acute distress. Head: Normal external exam. Normocephalic. Atraumatic. Eyes: PERRLA. EOMI. Conjunctiva and sclera normal. Eyelids normal. ENT: Pharynx normal. Uvula midline. Moist mucous membranes. No trismus noted. No drooling noted. No muffled voice noted. Neck: Normal inspection. Neck supple. FROM. No adenopathy. Thyroid Normal. No meningeal signs. No neck mass noted. CVS: Normal heart rate and rhythm. Heart sound normal. Pulses normal throughout. No murmurs/rales/gallops. Respiratory: No respiratory distress. Painless inspiration. Breath sounds normal. No wheezes/rales/rhonchi noted. Chest nontender. No accessory muscle usage noted or decreased air movement noted. Back: Full range of motion noted. No rashes/lesion/induration/fluctuance or signs of infection noted. Skin: Skin warm and dry. Normal skin color. Normal skin turgor. No rashes/lesions/lacerations noted. Extremities: Patient to left foot great toe at the distal/mid and proximal aspect of the great toe patient has mild soft tissue swelling and erythema/calor consistent with cellulitis. No streaking/induration/fluctuance or foreign bodies noted. Patient has full range of motion of all toes on the left foot. No obvious deformities. No obvious ligamentous or tendon injury is noted. No abrasions or lacerations are noted. No bruising is noted on my exam. Otherwise all other extremities exhibit normal range of motio and nontender. No lower extremity edema or calf tenderness is noted bilaterally. Neuro: Oriented X 3. No motor deficit. No sensory deficit. Reflexes normal. Normal steady gait. No focal neuro deficits noted. Vascular: + radial pulses/+ 2 distal pedal pulses/+2 dorsalis pedis b/l. Normal cap refill. No cyanosis noted to upper extremity nails and lower extremity toes nails. Course Course Course Narrative: 66-year-old male who is Welsh-speaking who has a past medical history of cocaine abuse, BPH, insomnia, impaired fasting glucose, tubular adenoma of colon, fibromyalgia, depression with anxiety, chronic back pain and osteoarthritis presenting to the ED with complaints of left foot/great toe pain/swelling/redness for the past 4 days after he was working out. He reports that he is unsure if he actually injured his foot by hitting a pole possibly at work due to there are multiple poles there and he does not wear the best used. He reports the last time he was seen here on 04/13/2021 he was diagnosed with cellulitis and given of ?strong antibiotic? which took away his symptoms/redness/swelling. Therefore he is requesting these antibiotics again. He denies any history of gout that he is aware of. X-ray obtained and negative for any acute processes only real chronic changes. I explained to the patient that he could possibly have a history of gout and has been on diagnose therefore explained to him that he should have gout testing by his PCP although due to patient reporting to me that when he was given Keflex last time his symptoms completely resolved during the course of the Keflex patient most likely cellulitic infection. Not consistent with osteomyelitis/sepsis/abscess therefore at this time will DC home with antibiotics and symptomatic treatment instructions follow-up with PCP for repeat evaluation treatment and gout testing. Patient understands agrees with this plan. MDM - Extremity (Nontraumatic) Medical Records Attestation: I reviewed the patient's medical records. Lab Data Attestation: I reviewed the patient's lab results. Imaging Data Left foot x-ray: Attestation: I personally reviewed and interpreted this imaging study as follows: Radiologist's impression: [address] [address] XRay Report Signed Patient: Brannon Jefferson MR#: [id number] : 1955 Acct:[id number] Age/Sex: 66 / M ADM Date: 06/10/21 Loc: HO.ED Attending Dr: Ordering Physician: Vanessa Abel Date of Service: 06/10/21 Procedure(s): XR foot LT min 3V Accession Number(s): [id number] cc: Vanessa Abel~ EXAMINATION: XR FOOT, LEFT CLINICAL INFORMATION: Make toe pain and swelling.? COMPARISON: None? TECHNIQUE: AP, lateral, and oblique views of the left foot. FINDINGS: There is no visible acute fracture, dislocation or subluxation. There is loss of PIP and DIP joints with periapical spurring consistent with degenerative arthritic changes. No soft tissue swelling. There is a small retrocalcaneal and calculi heel enthesophyte. The ankle mortise and subtalar joints are normal.? XR/XR foot LT min 3V IMPRESSION: No visible acute fracture or dislocation. Especially no abnormality of the great toe. ? Small calcaneal heel and retrocalcaneal enthesophytes. Discharge Plan Discharge Clinical Impression: Cellulitis, Cellulitis of great toe of left foot Patient Disposition: Home, Self-Care Instructions: Cellulitis (DC), Warm Compress or Soak (ED) Prescriptions: New cephalexin 500 mg capsule 500 mg PO Q8H 14 Days Qty: 42 0RF doxycycline hyclate 100 mg tablet 100 mg PO BID 14 Days Qty: 28 0RF ibuprofen 800 mg tablet 800 mg PO Q8H PRN (Reason: pain) Qty: 14 0RF No Action linaclotide [Linzess] 145 mcg capsule 145 mcg PO DAILY Qty: 30 3RF naproxen 500 mg tablet 500 mg PO BID PRN (Reason: pain) Qty: 20 0RF prednisone 20 mg tablet 40 mg PO DAILY Qty: 10 0RF lidocaine [Lidoderm] 5 % adhesive patch,medicated 1 patch topical DAILY Qty: 15 0RF Rx Instructions: leave on most painful area for up to 12 hrs cyclobenzaprine 5 mg tablet 5 mg PO TID PRN (Reason: muscle spasm) Qty: 14 0RF cephalexin 500 mg capsule 500 mg PO QID 7 Days Qty: 28 0RF clindamycin HCl 300 mg capsule 300 mg PO TID 0RF escitalopram oxalate 20 mg tablet 20 mg PO DAILY 0RF trazodone 50 mg tablet 50 mg PO BEDTIME 0RF fluticasone propionate 50 mcg/actuation spray,suspension 1 spray intranasal DAILY 0RF azithromycin 250 mg tablet 250 mg PO DIRECTED 0RF Referrals: Hernan Dowd MD [Primary Care Provider] - 2 days Stand Alone Forms: Work/School Release Print Language: Welsh
== END 2021-06-10 11:57 | disposition home or self-care (01) ==
PROVIDERS: Emergency Provider Emergency Medicine; PCP Internal Medicine
DX: L03.032 Cellulitis of left toe (principal); M79.672 Pain in left foot; Z79.899 Other long term (current) drug therapy
CPT/HCPCS: 73630; 99283

== ENCOUNTER 2021-06-13 08:27 | Emergency (ER) | payer OTHER, SELFPAY ==
--- NOTE | ~2021-06-13 | CT_ITS ---
EXAMINATION: CT WITH CONTRAST FOOT, LEFT CLINICAL INFORMATION: Evaluate for osteomyelitis of the great toe. COMPARISON: Radiographs 06/10/2021. TECHNIQUE: CT of the left foot is performed following intravenous administration of 85 mL Omnipaque 350 iodinated contrast, with sagittal and coronal reformats This CT examination was performed using dose optimization techniques as appropriate, variously including the following: *Automated exposure control *Adjustment of mA and/or kV according to patient size (this includes techniques or standardized protocols for targeted exams where dose is matched to indication/reason for exam; i.e. extremities or head) *Use of iterative reconstruction technique DLP: 201 mGy-cm. FINDINGS: There is diffuse subcutaneous edema, prominent along the dorsum of the foot. No peripherally enhancing collection to suggest an abscess. No soft tissue gas. No cortical erosion or periosteal reaction to suggest osteomyelitis. Prominent heel spur, and degenerative change of the midfoot, particularly the junction of the 3rd and 4th proximal metatarsals. No acute osseous abnormality. Chronic arthritic changes of the interphalangeal joints, particularly the 4th PIP joint. CT/CT foot LT w con IMPRESSION: No abscess or evidence of osteomyelitis.
[2021-06-13 08:30] VITALS: BP 128/73; PULSE 50; RESP 18; TEMP 36.2; O2SAT 98; BMI 29.0
[2021-06-13 09:12] LABS: MANUAL DIFF FLAG NO
[2021-06-13 09:15] LABS: Basophils Percent Auto 0.9 % (0-2); Eosinophils Absolute Auto 0.2 X10*3/uL (0.0-0.4); Eosinophils Percent Auto 4.5 % (0-4); Hematocrit 37.5 % (42.0-52.0); Hemoglobin 13.1 g/dl (14.0-18.0); Imm Gran Abs Auto 0.01 X10*3/uL (0.00-0.03); Imm Gran Pct Auto 0.3 % (0.0-0.4); Lymphocytes Absolute Auto 1.3 X10*3/uL (1.2-4.9); Mean Corpuscular HGB Conc 34.9 g/dl (31.0-36.0); Mean Corpuscular Hemoglobin 29.6 pg (27.0-33.0); Mean Corpuscular Volume 84.8 fL (80.0-98.0); Mean Platelet Volume 10.8 fL (9.4-12.4); Monocytes Absolute Auto 0.4 X10*3/uL (0.1-1.2); Monocytes Percent Auto 10.4 % (2-11); Neutrophils Absolute Auto 1.5 x10*3/uL (2.0-8.3); Neutrophils Percent Auto 44.9 % (45-73); Platelet Count 195 X10*3/uL (160-400); Red Blood Count 4.42 X10*6/uL (4.60-5.80); Red Cell Distribution Width 12.6 % (11.0-16.0); White Blood Count 3.4 X10*3/uL (4.8-10.8)
[2021-06-13] MEDS: 0.9 % Sodium Chloride 1,000 ML 999 ML IV (09:19)
[2021-06-13 09:26] VITALS: BP 110/70; PULSE 43; RESP 18; TEMP 36.6; O2SAT 100
[2021-06-13 09:26] LABS: Lactic Acid 0.9 mmol/L (0.5-2.0)
[2021-06-13 09:31] LABS: Alanine Aminotransferase 20 U/L (0-40); Albumin Level 4.3 g/dL (3.5-5.0); Alkaline Phosphatase 92 U/L (39-117); Anion Gap 10 (12-20); Aspartate Amino Transferase 19 U/L (5-37); Bilirubin Total 0.5 mg/dL (0.0-1.0); Blood Urea Nitrogen 17 mg/dL (9-16); C Reactive Protein 5.85 mg/dL (< or = 0.50); Calcium 9.5 mg/dL (8.4-10.2); Carbon Dioxide 27 mmol/L (22-29); Chloride 108 mmol/L (96-108); Creatinine Clr Calc Pharmacy 89.3; Estimated Glomerular Filt Rate > 60; Glucose Random 78 mg/dL (60-115); Potassium 4.1 mmol/L (3.3-5.1); Sodium 141 mmol/L (135-145); Total Protein 7.4 g/dL (6.5-8.0)
--- NOTE | 2021-06-13 09:33 | ED_ITS ---
HPI - General Adult General Chief complaint: General Medical Stated complaint: L leg swelling Time Seen by Provider: 06/13/21 08:43 Source: patient Mode of arrival: ambulatory Limitations: no limitations History of Present Illness HPI narrative: 66-year-old male with history of cocaine abuse, fibromyalgia, tubular adenoma of colon, BPH, presents to the ED for left foot chronic redness adhesive was treated as cellulitis and failed antibiotic. Patient was seen April of last year and it improved and June 10 of this year same issue. Patient was recently placed on antibiotics and was re-evaluated by primary care provider was sent patient to the ED for IV antibiotics. Patient states no known history of g out. Related Data Home Medications Medication Instructions Recorded Confirmed azithromycin 250 mg tablet 250 mg PO DIRECTED 10/24/20 clindamycin HCl 300 mg capsule 300 mg PO TID 10/24/20 escitalopram oxalate 20 mg 20 mg PO DAILY 10/24/20 tablet fluticasone propionate 50 1 spray INTRANASAL DAILY 10/24/20 mcg/actuation nasal spray,suspension trazodone 50 mg tablet 50 mg PO BEDTIME 10/24/20 Previous Rx's Medication Instructions Recorded linaclotide 145 mcg capsule 145 mcg PO DAILY #30 cap 06/15/20 (Linzess) naproxen 500 mg tablet 500 mg PO BID PRN #20 tab 10/13/20 prednisone 20 mg tablet 40 mg PO DAILY #10 tab 10/13/20 cyclobenzaprine 5 mg tablet 5 mg PO TID PRN #14 tab 02/06/21 lidocaine 5 % topical patch 1 patch TOPICAL DAILY #15 ea 02/06/21 (Lidoderm) cephalexin 500 mg capsule 500 mg PO QID 7 Days #28 cap 04/13/21 cephalexin 500 mg capsule 500 mg PO Q8H 14 Days #42 cap 06/10/21 doxycycline hyclate 100 mg tablet 100 mg PO BID 14 Days #28 tab 06/10/21 ibuprofen 800 mg tablet 800 mg PO Q8H PRN #14 tab 06/10/21 colchicine 0.6 mg capsule 0.6 mg PO BID 3 Days #7 cap 06/13/21 indomethacin 50 mg capsule 50 mg PO TID 7 Days #21 cap 06/13/21 Allergies Allergy/AdvReac Type Severity Reaction Status Date / Time ketoconazole Allergy Intermediate rash Verified 02/06/21 10:09 quetiapine Allergy Intermediate tachycardia Verified 02/06/21 10:09 Review of Systems Verdana 4l Review of Systems: Verdana 4d Left big toe redness and Verdana 4d swelling Verdana 4d Yes all other systems are reviewed and are negative [facility] Past Medical History Medical History BPH (benign prostatic hyperplasia) Chronic back pain Chronic idiopathic constipation Cocaine use Depression with anxiety Fibromyalgia Impaired fasting glucose Insomnia Tubular adenoma of colon Surgical History H/O colonoscopy Family History Family History Father Myocardial infarction Sister Colon cancer Kidney disease Brother Cirrhosis Sister Diabetes Brother Partial sight in both eyes Mother No problems noted. Social History Social History Alcohol intake: former Patient Tobacco Use Status: Never used Tobacco Advance Directives: No Advance Directives Information Provided: No Current occupational status: retired Physical Exam Verdana 4l Vital Signs: Verdana 4d Verdana 4d Vital Signs: Verdana 4d Verdana 4Bd Last Vital Signs Verdana 4d Environmental Health Officer New 4d Environmental Health Officer New 4d Temp 97.8 F 06/13/21 11:56 Environmental Health Officer New 4d Pulse 42 L 06/13/21 11:56 Environmental Health Officer New 4d Resp 12 06/13/21 11:56 BP 114/73 06/13/21 11:56 Pulse Ox 99 06/13/21 11:56 BMI result Body Mass Index 29.0 Const: General: cooperative, healthy appearing, comfortable, no acute distress, well developed, alert and awake Orientation/consciousness: patient oriented x3 HENMT: Head: Yes normal to inspection, Yes No palpable skull fracture present, Yes normocephalic, Yes atraumatic and No abrasion Eyes: General: appearance normal, both eyes and all related structures Neck: Neck: Yes normal visual inspection, Yes full ROM, Yes no lymphadenopathy, Yes no meningeal signs, Yes trachea midline, Yes supple, No anterior neck swelling and No tender Chest: Chest palpation & inspection: normal inspection of the chest and normal palpation of entire chest wall Resp: Effort & Inspection: normal respiratory effort and able to speak in complete sentences Auscultation: clear to auscultation bilaterally Cardio: Jugular venous distension: no JVD Heart sounds: S1 normal heart sound present and S2 normal heart sound present GI: Inspection: Yes normal to inspection and No abdominal wall ecchymosis P alpation (GI): Soft to palpation, not firm, nontender, no guarding and not rigid : General: No CVA tenderness and Yes no CVA tenderness Back/Spine/Pelvis: Back: no CVA tenderness, No CVA tenderness and No back tenderness Skin: General skin exam: no rashes or lesions noted and elasticity normal Neuro: General: patient oriented x3, gait normal, no meningeal signs and CN's II-XI intact bilaterally Cranial nerves: Yes CN's II-XII intact bilaterally Extrem: Other: Vascular/motor/neuro exam intact of left lower extremity. Right lower extremity normal General: Yes normal to inspection and Yes full ROM Psych: Appearance: grossly normal, well kempt and not disheveled Course Course Course Narrative: Patient states he has been on antibiotics for 4 days. Will repeat labs including uric ESR and CRP. Will do a CT scan of the foot. Differentials cellulitis versus gout. Reevaluation(s) Reevaluation #1: Patient's CT scan of foot negative for osteomyelitis. Negative for elevated white blood cell count or lactic acidosis. Presently no indication for admission or for other IV antibiotics. Patient has 4 more days left of oral antibiotics to complete. History and physical exam indicate more gout presentation. Patient will be placed on indomethacin and colchicine. Patient informed to complete treatment and follow-up with primary care provider. Patient states he runs and bradycardia is at his baseline. On monitor before discharge heart rate 50s. Denies any chest pain, shortness of breath, weakness, or dizziness. Case was discussed with Dr. Latham who agreed with plan. Time: 12:49 Medical Decision Making MDM Narrative Medical decision making narrative: Gout Lab Data Result diagrams: 06/13/21 09:07 06/13/21 09:07 Labs: Lab Results 06/13/21 06/13/21 06/13/21 Range/Units 09:07 09:07 09:07 WBC 3.4 L (4.8-10.8) X10*3/uL RBC 4.42 L (4.60-5.80) X10*6/uL Hgb 13.1 L (14.0-18.0) g/dl Hct 37.5 L (42.0-52.0) % MCV 84.8 (80.0-98.0) fL MCH 29.6 (27.0-33.0) pg MCHC 34.9 (31.0-36.0) g/dl RDW 12.6 (11.0-16.0) % Plt Count 195 (160-400) X10*3/uL MPV 10.8 (9.4-12.4) fL Immature Gran % (Auto) 0.3 (0.0-0.4) % Neut % (Auto) 44.9 L (45-73) % Lymph % (Auto) 39.0 (20-40) % [place] % (Auto) 10.4 (2-11) % Eos % (Auto) 4.5 H (0-4) % Baso % (Auto) 0.9 (0-2) % Lymph # (Auto) 1.3 (1.2-4.9) X10*3/uL [place] # (Auto) 0.4 (0.1-1.2) X10*3/uL Eos # (Auto) 0.2 (0.0-0.4) X10*3/uL Baso # (Auto) 0.0 (0.0-0.2) X10*3/uL Abs Immat Gran (auto) 0.01 (0.00-0.03) X10*3/uL Absolute Neuts (auto) 1.5 L (2.0-8.3) x10*3/uL Absolute Nucleated RBC 0.000 (0.0-0.012) X10*3/uL Nucleated RBC % (auto) 0.0 (0.0-0.2) /100WBC ESR 28 H (0-15) MM/HR Sodium 141 (135-145) mmol/L Potassium 4.1 (3.3-5.1) mmol/L Chloride 108 (96-108) mmol/L Carbon Dioxide 27 (22-29) mmol/L Anion Gap 10 L (12-20) BUN 17 H (9-16) mg/dL Creatinine 0.82 (0.5-1.4) mg/dL Estim Creat Clear Calc 89.3 Estimated GFR > 60 Random Glucose 78 (60-115) mg/dL Lactic Acid (0.5-2.0) mmol/L Uric Acid 5.0 (3.4-7.0) mg/dL Calcium 9.5 (8.4-10.2) mg/dL Total Bilirubin 0.5 (0.0-1.0) mg/dL AST 19 (5-37) U/L ALT 20 (0-40) U/L Alkaline Phosphatase 92 (39-117) U/L C-Reactive Protein 5.85 H (< or = 0.50) mg/dL Total Protein 7.4 (6.5-8.0) g/dL Albumin 4.3 (3.5-5.0) g/dL Urine Color Urine Appearance Urine pH (5.0-8.0) Ur Specific [place] (1.005-1.025) Urine Protein (NEG-TRACE) MG/DL Urine Glucose (UA) (NEG) MG/DL Urine Ketones (NEG) MG/DL Urine Blood (NEG) Urine Nitrite (NEG) Ur Leukocyte Esterase (NEG) Urine Opiates Screen (Not Detect) Urine Fentanyl Screen (Not Detect) Ur Barbiturates Screen (Not Detect) Ur Phencyclidine Scrn (Not Detect) Ur Amphetamines Screen (Not Detect) U Benzodiazepines Scrn (Not Detect) Urine Cocaine Screen (Not Detect) U Marijuana (THC) Screen (Not Detect) 06/13/21 06/13/21 06/13/21 Range/Units 09:07 11:29 11:29 WBC (4.8-10.8) X10*3/uL RBC (4.60-5.80) X10*6/uL Hgb (14.0-18.0) g/dl Hct (42.0-52.0) % MCV (80.0-98.0) fL MCH (27.0-33.0) pg MCHC (31.0-36.0) g/dl RDW (11.0-16.0) % Plt Count (160-400) X10*3/uL MPV (9.4-12.4) fL Immature Gran % (Auto) (0.0-0.4) % Neut % (Auto) (45-73) % Lymph % (Auto) (20-40) % [place] % (Auto) (2-11) % Eos % (Auto) (0-4) % Baso % (Auto) (0-2) % Lymph # (Auto) (1.2-4.9) X10*3/uL [place] # (Auto) (0.1-1.2) X10*3/uL Eos # (Auto) (0.0-0.4) X10*3/uL Baso # (Auto) (0.0-0.2) X10*3/uL Abs Immat Gran (auto) (0.00-0.03) X10*3/uL Absolute Neuts (auto) (2.0-8.3) x10*3/uL Absolute Nucleated RBC (0.0-0.012) X10*3/uL Nucleated RBC % (auto) (0.0-0.2) /100WBC ESR (0-15) MM/HR Sodium (135-145) mmol/L Potassium (3.3-5.1) mmol/L Chloride (96-108) mmol/L Carbon Dioxide (22-29) mmol/L Anion Gap (12-20) BUN (9-16) mg/dL Creatinine (0.5-1.4) mg/dL Estim Creat Clear Calc Estimated GFR Random Glucose (60-115) mg/dL Lactic Acid 0.9 (0.5-2.0) mmol/L Uric Acid (3.4-7.0) mg/dL Calcium (8.4-10.2) mg/dL Total Bilirubin (0.0-1.0) mg/dL AST (5-37) U/L ALT (0-40) U/L Alkaline Phosphatase (39-117) U/L C-Reactive Protein (< or = 0.50) mg/dL Total Protein (6.5-8.0) g/dL Albumin (3.5-5.0) g/dL Urine Color STRAW Urine Appearance CLEAR Urine pH 5.5 (5.0-8.0) Ur Specific [place] 1.015 (1.005-1.025) Urine Protein NEG (NEG-TRACE) MG/DL Urine Glucose (UA) NEG (NEG) MG/DL Urine Ketones NEG (NEG) MG/DL Urine Blood NEG (NEG) Urine Nitrite NEG (NEG) Ur Leukocyte Esterase NEG (NEG) Urine Opiates Screen Not Detected (Not Detect) Urine Fentanyl Screen Not Detected (Not Detect) Ur Barbiturates Screen Not Detected (Not Detect) Ur Phencyclidine Scrn Not Detected (Not Detect) Ur Amphetamines Screen Not Detected (Not Detect) U Benzodiazepines Scrn Not Detected (Not Detect) Urine Cocaine Screen Not Detected (Not Detect) U Marijuana (THC) Not Detected (Not Detect) Screen Discharge Plan Discharge Clinical Impression: Gout Patient Disposition: Home, Self-Care Instructions: Gout (ED), Bradycardia (ED) Additional Instructions: History physical exam indicate more gout presents cellulitis but continues and finish the antibiotic prescriptions. He will be discharged with indomethacin and colchicine. Return to the ED for any fever, chills, worsening redness, red streaks, worsening pain, increased swelling, chest pain, shortness of breath, pus discharge, foul odor, open wound, or any other concerning symptoms. Do not take Motrin or any other NSAIDs with indomethacin. Please follow-up with primary care provider. Prescriptions: New indomethacin 50 mg capsule 50 mg PO TID 7 Days Qty: 21 0RF Rx Instructions: administer with food or milk colchicine 0.6 mg capsule 0.6 mg PO BID 3 Days Qty: 7 0RF Rx Instructions: Day 1: Take 0.6mg Three times a day Day 2 and Day 3: Take 0.6mg twice a day. No Action linaclotide [Linzess] 145 mcg capsule 145 mcg PO DAILY Qty: 30 3RF naproxen 500 mg tablet 500 mg PO BID PRN (Reason: pain) Qty: 20 0RF prednisone 20 mg tablet 40 mg PO DAILY Qty: 10 0RF lidocaine [Lidoderm] 5 % adhesive patch,medicated 1 patch topical DAILY Qty: 15 0RF Rx Instructions: leave on most painful area for up to 12 hrs cyclobenzaprine 5 mg tablet 5 mg PO TID PRN (Reason: muscle spasm) Qty: 14 0RF cephalexin 500 mg capsule 500 mg PO QID 7 Days Qty: 28 0RF cephalexin 500 mg capsule 500 mg PO Q8H 14 Days Qty: 42 0RF doxycycline hyclate 100 mg tablet 100 mg PO BID 14 Days Qty: 28 0RF ibuprofen 800 mg tablet 800 mg PO Q8H PRN (Reason: pain) Qty: 14 0RF clindamycin HCl 300 mg capsule 300 mg PO TID 0RF escitalopram oxalate 20 mg tablet 20 mg PO DAILY 0RF trazodone 50 mg tablet 50 mg PO BEDTIME 0RF fluticasone propionate 50 mcg/actuation spray,suspension 1 spray intranasal DAILY 0RF azithromycin 250 mg tablet 250 mg PO DIRECTED 0RF Stand Alone Forms: Work/School Release Interventions: ED Discharge Assessment Last Done: 06/13/21 13:09 Discharge Date/Time: 06/13/21 13:21 Print Language: Pashto
[2021-06-13 09:51] LABS: Erythrocyte Sedimentation Rate 28 MM/HR (0-15)
[2021-06-13 10:15] VITALS: BP 120/72; PULSE 43; RESP 16; O2SAT 100
[2021-06-13 11:41] LABS: Appearance Urine CLEAR; Color Urine STRAW; Glucose Urine UA NEG (NEG); Leukocyte Esterase Urine NEG (NEG); Nitrite Urine NEG (NEG); PH 5.5 (5.0-8.0); Specific Gravity - Urine 1.015 (1.005-1.025); Urine Blood NEG (NEG); Urine Ketones NEG (NEG); Urine Protein NEG (NEG-TRACE)
[2021-06-13 11:52] LABS: Amphetamine Screen Urine Not Detected (Not Detect); Barbiturates, Urine Not Detected (Not Detect); Benzodiazepines Screen Urine Not Detected (Not Detect); Cannabinoid Screen Urine Not Detected (Not Detect); Cocaine Screen Urine Not Detected (Not Detect); Fentanyl, urine Not Detected (Not Detect); Opiate Screen Urine Not Detected (Not Detect); Phencyclidine Screen Urine Not Detected (Not Detect)
[2021-06-13 11:56] VITALS: BP 114/73; PULSE 42; RESP 12; TEMP 36.6; O2SAT 99
--- NOTE | 2021-06-13 11:58 | PC.NURSE ---
pt a&ox3, sinus demetria, reports increased movement in left foot, still warm to touch, will continue to monitor.
--- NOTE | 2021-06-13 12:14 | ECG_ITS ---
Test Reason : low heart rate Blood Pressure : / mmHG Vent. Rate : 041 BPM Atrial Rate : 041 BPM P-R Int : 154 ms QRS Dur : 084 ms QT Int : 456 ms P-R-T Axes : 043 -07 -03 degrees QTc Int : 376 ms Marked sinus bradycardia Abnormal ECG When compared with ECG of 06-FEB-2021 11:10, No significant change was found Referred By: Aftab Brady Electronically Signed By:SWATHI COLON
== END 2021-06-13 13:21 | disposition home or self-care (01) ==
PROVIDERS: Physician Assistant; Emergency Provider Emergency Medicine Emergency Medical Services; PCP Internal Medicine
DX: M10.9 Gout, unspecified (principal); R60.0 Localized edema; Z79.899 Other long term (current) drug therapy
CPT/HCPCS: 36415; 73701; 80053; 80307; 81003; 83605; 84550; 85025; 85652; 86140; 87040; 93005; 96360; 99284

== ENCOUNTER 2021-07-27 07:02 | Emergency (ER) | payer OTHER, SELFPAY ==
[2021-07-27 07:11] VITALS: BP 127/70; PULSE 55; RESP 18; TEMP 36.6; O2SAT 100; BMI 31.0
--- NOTE | 2021-07-27 09:05 | ED_ITS ---
HPI - Extremity Injury (Lower) General Chief Complaint: Extremity Injury, Lower Stated Complaint: Toe inflammation Time Seen by Provider: 07/27/21 09:05 Source: patient Mode of arrival: ambulatory Limitations: no limitations History of Present Illness HPI Narrative: Patient is a 66 year old male presenting to the emergency department today with left big toe pain. Patient states that he has a job for a few hours a week that requires him to wear some what tight shoes and that has caused an infection in this toe before. Patient states he woke up this morning and his left toe was swollen like this. Patient states that the pain stays in the left toe and he currently rates it at a 3/10 on the pain scale and describes it as a dull pain. Patient denies any dizziness, lightheadedness, abdominal pain, nausea, vomiting, fever, chills, blurry vision, double vision, loss of vision, chest pain, difficulty breathing, shortness of breath, back pain, night sweats, pain with urination, increased urinary frequency, increased urinary urgency, blood in his urine or stool, syncope or a near syncopal episode, recent trauma or falls, bowel incontinence, bladder incontinence, bowel retention, bladder retention, or any other complaints at this time. Onset (ago): hour(s) Place: home Severity: mild Severity scale (1-10): 3 Relieving factors: nothing Exacerbating factors: nothing Other symptoms: none Related Data Home Medications Medication Instructions Recorded Confirmed azithromycin 250 mg tablet 250 mg PO DIRECTED 10/24/20 clindamycin HCl 300 mg capsule 300 mg PO TID 10/24/20 escitalopram oxalate 20 mg tablet 20 mg PO DAILY 10/24/20 fluticasone propionate 50 1 spray INTRANASAL DAILY 10/24/20 mcg/actuation nasal spray,suspension trazodone 50 mg tablet 50 mg PO BEDTIME 10/24/20 Previous Rx's Medication Instructions Recorded linaclotide 145 mcg capsule 145 mcg PO DAILY #30 cap 06/15/20 (Linzess) naproxen 500 mg tablet 500 mg PO BID PRN #20 tab 10/13/20 prednisone 20 mg tablet 40 mg PO DAILY #10 tab 10/13/20 cyclobenzaprine 5 mg tablet 5 mg PO TID PRN #14 tab 02/06/21 lidocaine 5 % topical patch 1 patch TOPICAL DAILY #15 ea 02/06/21 (Lidoderm) cephalexin 500 mg capsule 500 mg PO QID 7 Days #28 cap 04/13/21 cephalexin 500 mg capsule 500 mg PO Q8H 14 Days #42 cap 06/10/21 doxycycline hyclate 100 mg tablet 100 mg PO BID 14 Days #28 tab 06/10/21 ibuprofen 800 mg tablet 800 mg PO Q8H PRN #14 tab 06/10/21 colchicine 0.6 mg capsule 0.6 mg PO BID 3 Days #7 cap 06/13/21 indomethacin 50 mg capsule 50 mg PO TID 7 Days #21 cap 06/13/21 cephalexin 500 mg capsule 500 mg PO Q6H 7 Days #28 cap 07/27/21 Allergies Allergy/AdvReac Type Severity Reaction Status Date / Time ketoconazole Allergy Intermediate rash Verified 02/06/21 10:09 quetiapine Allergy Intermediate tachycardia Verified 02/06/21 10:09 Review of Systems Constitutional: Constitutional: Reports no additional constitutional complaints, Denies chills, Denies fever(s) and Denies night sweats Eyes: Eyes: Reports no additional eye complaints, Denies blurry vision, Denies change in vision, Denies diplopia, Denies eye discharge, Denies loss of vision and Denies eye pain ENT: Denies dizziness Cardiovascular: Cardiovascular: Reports no additional cardiovascular complaints, Denies chest pain, Denies lightheadedness, Denies Loss of Consciousness and Denies dyspnea Respiratory: Respiratory: Reports no additional respiratory complaints and Denies dyspnea Gastrointestinal: Gastrointestinal: Reports no additional gastrointestinal co mplaints, Denies abdominal pain, Denies melena, Denies hematochezia, Denies change in bowel habits and Denies change in stool character Genitourinary: Genitourinary: Reports no additional male genitourinary complaints, Denies hematuria, Denies oliguria, Denies difficulty urinating, Denies dysuria, Denies urinary frequency, Denies urinary hesitancy, Denies urinary incontinence and Denies urinary urgency Musculoskeletal: Musculoskeletal: Reports no additional musculoskeletal complaints, Denies numbness and Denies tingling Comments: left great toe pain Neurologic: Denies dizziness, Denies loss of vision, Denies numbness and Denies tingling Psychiatric: Psychiatric: Reports no additional psychiatric complaints Endocrine: Endocrine: Reports no additional endocrine complaints Hematologic/Lymphatic: Hematologic/Lymphatic: Reports no additional h ematologic/lymphatic complaints Allergic/Immunologic: Allergic/Immunologic: Reports no additional allergic/immunologic complaints PMFSH Past Medical History Attestation statement: The following information was validated with the patient. Source: old records reviewed Medical History BPH (benign prostatic hyperplasia) Chronic back pain Chronic idiopathic constipation Cocaine use Depression with anxiety Fibromyalgia Impaired fasting glucose Insomnia Tubular adenoma of colon Surgical History H/O colonoscopy Family History Family History Father Myocardial infarction Sister Colon cancer Kidney disease Brother Cirrhosis Sister Diabetes Brother Partial sight in both eyes Mother No problems noted. Social History Social History Alcohol intake: former Patient Tobacco Use Status: Never used Tobacco Advance Directives: No Advance Directives Information Provided: No Current occupational status: retired Physical Exam Vital Signs: Vital Signs: Last Vital Signs Temp 97.8 F 07/27/21 07:11 Pulse 55 07/27/21 07:11 Resp 18 07/27/21 07:11 BP 127/70 07/27/21 07:11 Pulse Ox 100 07/27/21 07:11 BMI result Body Mass Index 31.0 Const: General: cooperative, no acute distress, alert and awake Nutritional Appearance: well nourished Orientation/consciousness: patient oriented x3 Limitations: no limitations HENMT: Head: Yes normal to inspection and Yes atraumatic Ears: hearing grossly normal bilaterally and external ears normal General nose exam: Normal external nose present, no nasal discharge noted and no epistaxis Face and sinus: Yes normal facial exam, No abrasion and No laceration Mouth: Normal oral and palatal mucosa present, no drooling and no muffled voice Eyes: General: appearance normal, both eyes and all related structures Periorbital: periorbital findings normal Eyelids: Yes eyelids normal Conjunctivae: conjunctivae normal Pupils: Equal, round and reactive pupils present EOM: EOMs intact bilaterally Neck: Neck: Yes normal visual inspection, Yes full ROM and Yes no lymphadenopathy Chest: Chest palpation & inspection: normal inspection of the chest Resp: Effort & Inspection: normal respiratory effort and able to speak in complete sentences Auscultation: clear to auscultation bilaterally Cardio: Rate: regular rate Rhythm: regular rhythm GI: Inspection: Yes normal to inspection Skin: Other: left great toe redness to the dorsal aspect along the PIP joint with no warmth Neuro: General: patient oriented x3 and moves all extremities Cranial nerves: Yes Equal, round and reactive pupils present Cognition (Neuro): normal cognition Motor exam (neuro): 5/5 motor strength present throughout Sensory Exam: Normal double simultaneous stimulation for sensation Coordination: [id number] test normal Extrem: General: Yes normal to inspection, Yes full ROM and Yes capillary refill normal Psych: Appearance: grossly normal Mental Status: mental status grossly normal Affect: normal affect Attitude: cooperative Thought process: Normal thought process present Thought content: Normal thought content present Insight: Good insight present (Psych) MDM - Extremity Injury (Lower) MDM Narrative Medical decision making narrative: Patient is a 66 year old male presenting to the emergency department today with left great toe inflammation. Patient's physical exam showed mild redness to the dorsal aspect of the left great toe just over the PIP joint with no warmth or flutuance. The redness appeared cellulitic in nature. I explained my physical exam findings to the patient. I answered all questions asked by the patient. I stressed the importance of the patient taking his medication as prescribed. I stressed the importance of the patient following up with his primary care provider and requesting a referral to a disability attorney at his PCP visit. I stressed the importance of the patient returning to the emergency department immediately if his symptoms were to worsen or if he were to develop any dizziness, shortness of breath, difficulty breathing, chest pain, blurry vision, loss of vision, nausea, vomiting, abdominal pain, fever, chills, back pain, or any other complaints. Patient verbalized agreement and understanding with this treatment plan and discharge. Differential Diagnosis Differential diagnosis: Unlikely fracture of toe (cellulitis, gout) Medical Records Attestation: I reviewed the patient's medical records. Discharge Plan Discharge Clinical Impression: Infection, Cellulitis Patient Disposition: Home, Self-Care Instructions: Cellulitis (ED), Cellulitis (DC) Additional Instructions: Follow up with your primary care provider and make sure to request a referral to a disability attorney. Return to the emergency department immediately if your symptoms worsen or if you develop any dizziness, shortness of breath, difficulty breathing, chest pain, blurry vision, loss of vision, nausea, vomiting, abdominal pain, fever, chills, back pain, or any other complaints. Prescriptions: New cephalexin 500 mg capsule 500 mg PO Q6H 7 Days Qty: 28 0RF No Action linaclotide [Linzess] 145 mcg capsule 145 mcg PO DAILY Qty: 30 3RF naproxen 500 mg tablet 500 mg PO BID PRN (Reason: pain) Qty: 20 0RF prednisone 20 mg tablet 40 mg PO DAILY Qty: 10 0RF indomethacin 50 mg capsule 50 mg PO TID 7 Days Qty: 21 0RF Rx Instructions: administer with food or milk colchicine 0.6 mg capsule 0.6 mg PO BID 3 Days Qty: 7 0RF Rx Instructions: Day 1: Take 0.6mg Three times a day Day 2 and Day 3: Take 0.6mg twice a day. lidocaine [Lidoderm] 5 % adhesive patch,medicated 1 patch topical DAILY Qty: 15 0RF Rx Instructions: leave on most painful area for up to 12 hrs cyclobenzaprine 5 mg tablet 5 mg PO TID PRN (Reason: muscle spasm) Qty: 14 0RF cephalexin 500 mg capsule 500 mg PO QID 7 Days Qty: 28 0RF cephalexin 500 mg capsule 500 mg PO Q8H 14 Days Qty: 42 0RF doxycycline hyclate 100 mg tablet 100 mg PO BID 14 Days Qty: 28 0RF ibuprofen 800 mg tablet 800 mg PO Q8H PRN (Reason: pain) Qty: 14 0RF clindamycin HCl 300 mg capsule 300 mg PO TID 0RF escitalopram oxalate 20 mg tablet 20 mg PO DAILY 0RF trazodone 50 mg tablet 50 mg PO BEDTIME 0RF fluticasone propionate 50 mcg/actuation spray,suspension 1 spray intranasal DAILY 0RF azithromycin 250 mg tablet 250 mg PO DIRECTED 0RF Referrals: Hernan Dowd MD [Primary Care Provider] - 2 days Stand Alone Forms: Work/School Release Interventions: ED Discharge Assessment Last Done: 07/27/21 09:30 Discharge Date/Time: 07/27/21 09:30 Print Language: Pashto
== END 2021-07-27 09:30 | disposition home or self-care (01) ==
PROVIDERS: Emergency Provider Emergency Medicine; PCP Internal Medicine
DX: L03.032 Cellulitis of left toe (principal); M79.675 Pain in left toe(s)
CPT/HCPCS: 99283

== ENCOUNTER 2022-05-23 09:55 | Outpatient (REF) | payer OTHER, SELFPAY ==
--- NOTE | 2022-05-23 | EMG_ITS ---
Bilateral tibial and peroneal motor studies were performed. Bilateral sural and superficial peroneal sensory studies were performed. Tibial H reflexes were obtained and paraspinal muscles were tested with a needle. IMPRESSION: 1. [id number] somewhat patchy, mostly sensory and motor peripheral neuropathy. 2. Chronic bilateral lower lumbar radiculopathy. MD NOMAN Fortune/GINA / [phone]
== END 2022-05-23 09:56 | disposition home or self-care (01) ==
LOC: HO.NEURO 09:55
PROVIDERS: PCP Internal Medicine; Visit Provider Internal Medicine
DX: R20.0 Anesthesia of skin (principal)
CPT/HCPCS: 95886; 95911

== ENCOUNTER 2022-09-06 06:56 | Outpatient (REF) | payer OTHER, SELFPAY ==
[2022-09-06 09:28] LABS: Folate 16.9 ng/mL (> or = 4.0); Vitamin B12 399 pg/mL (200-900)
[2022-09-06 10:11] LABS: Anion Gap 12 (12-20); Blood Urea Nitrogen 17 mg/dL (9-16); Calcium 9.3 mg/dL (8.4-10.2); Carbon Dioxide 28 mmol/L (22-29); Chloride 108 mmol/L (96-108); Estimated Glomerular Filt Rate > 60; Glucose Fasting 96 mg/dL (60-99); Potassium 4.9 mmol/L (3.3-5.1); Sodium 143 mmol/L (135-145)
[2022-09-09 18:03] LABS: IgA 419 mg/dL (70-320); IgG 1516 mg/dL (600-1540); IgM 48 mg/dL (50-300)
[2022-09-09 21:04] LABS: Lyme Abs Screen <0.90 index
== END 2022-09-06 06:57 | disposition home or self-care (01) ==
LOC: HO.LAB 06:56
PROVIDERS: PCP Internal Medicine; Visit Provider Psychiatry & Neurology Neurology
DX: G62.9 Polyneuropathy, unspecified (principal)
CPT/HCPCS: 36415; 80048; 82607; 82746; 82784; 86334; 86617; 86618

== ENCOUNTER 2024-01-21 11:05 | Outpatient (REF) | payer OTHER, SELFPAY ==
[2024-01-21 13:47] LABS: MANUAL DIFF FLAG NO
[2024-01-21 14:03] LABS: Eosinophils Absolute Auto 0.1 X10*3/uL (0.0-0.4); Eosinophils Percent Auto 2.9 % (0-4); Hematocrit 39.9 % (42.0-52.0); Hemoglobin 14.5 g/dl (14.0-18.0); Imm Gran Abs Auto 0.01 X10*3/uL (0.00-0.03); Imm Gran Pct Auto 0.3 % (0.0-0.4); Lymphocytes Absolute Auto 1.4 X10*3/uL (1.2-4.9); Lymphocytes Percent Auto 46.2 % (20-40); Mean Corpuscular HGB Conc 36.3 g/dl (31.0-36.0); Mean Corpuscular Hemoglobin 30.7 pg (27.0-33.0); Mean Corpuscular Volume 84.4 fL (80.0-98.0); Mean Platelet Volume 10.6 fL (9.4-12.4); Monocytes Absolute Auto 0.3 X10*3/uL (0.1-1.2); Monocytes Percent Auto 9.9 % (2-11); Neutrophils Absolute Auto 1.2 x10*3/uL (2.0-8.3); Neutrophils Percent Auto 39.7 % (45-73); Platelet Count 206 X10*3/uL (160-400); Red Blood Count 4.73 X10*6/uL (4.60-5.80); Red Cell Distribution Width 12.6 % (11.0-16.0); White Blood Count 3.1 X10*3/uL (4.8-10.8)
[2024-01-21 14:38] LABS: Anion Gap 12 (12-20); Blood Urea Nitrogen 18 mg/dL (9-16); Calcium 9.2 mg/dL (8.4-10.2); Carbon Dioxide 25 mmol/L (22-29); Chloride 106 mmol/L (96-108); Cholesterol 182 mg/dL (<200); Estimated Glomerular Filt Rate > 60; Glucose Random 84 mg/dL (60-115); HDL Cholesterol 31 mg/dL (>40); LDL Cholesterol Calculated 115 mg/dL (<100); Sodium 139 mmol/L (135-145); Triglycerides 181 mg/dL (<150)
[2024-01-21 14:54] LABS: Folate 15.7 ng/mL (> or = 4.0); Prostate Specific Antigen Scr 5.88 ng/mL (<0.05-4.0); Vitamin B12 392 pg/mL (200-900)
== END 2024-01-21 11:06 | disposition home or self-care (01) ==
LOC: HO.CHCLDS 11:05
PROVIDERS: Visit Provider Internal Medicine
DX: R73.01 Impaired fasting glucose (principal); R35.1 Nocturia; Z12.5 Encounter for screening for malignant neoplasm of prostate
CPT/HCPCS: 36415; 80048; 80061; 82607; 82746; 84153; 85025

== ENCOUNTER 2025-02-09 11:07 | Outpatient (AMB) | payer OTHER, SELFPAY ==
--- NOTE | 2025-02-09 11:09 | MHC.OFFVIS ---
Vital Signs 02/09/25 11:24 Height 5 ft 7 in Weight 195 lb 5.273 oz BMI 30.6 BP 139/96 H Blood Pressure Location Lt brachial Position Sitting Pulse 76 Intake Visit Reasons: colonoscopy screening Intake Note: New patient in office today for colonoscopy screening. CC: Patient reports that he has constipation but he takes Linzess and it helps with symptoms. Cardiology Manager Required: No Accompanied by: Self / Same As Patient Allergies ketoconazole Allergy (Intermediate, Verified 02/09/25 11:28) rash quetiapine Allergy (Intermediate, Verified 02/09/25 11:28) tachycardia HPI HPI colonoscopy screening: Details: 69-YEAR-OLD MALE lost to follow-up since 2019 now presenting for a screening colonoscopy. He is referred by [facility]. PMX Obesity-BMI 31 Transaminitis Back pain BPH Fibromyositis Impaired fasting glucose Osteoarthritis SURGICAL HISTORY * ALLERGIES Hydrocodone Ketoconazole Seroquel * TransferGo labs: Last note from 02/2020 Assessment & Plan (1) Chronic idiopathic constipation: ?Code(s): K59.04 - Chronic idiopathic constipation ?Category:?Medical ?Plan - Mally Burnette, [facility]-: Spoke with patient he reports that he has been taking Linzess every day and reports that it has been working very good he states that he has been moving his bowels much better.? Denies? any diarrhea, constipation, melena , abdominal pain or discomfort.? He reports that he continues to have a upper respiratory? symptoms with congestion and sore throat.? Patient reports that he was seen at [facility] where he? was screened negative for call with an put on antibiotics.? He reports he is not feeling better from that he will be calling his primary care doctor.? ? He denies any other? GI symptoms.? ? Will continue same dose of Linzess (2) Family history of colon cancer: ?Comment: ?sister ?Code(s): Z80.0 - Family history of malignant neoplasm of digestive organs ?Category:?Medical ?Plan - Mally Burnette, [employer]-: Due to his respiratory infection at this point we will wait 1 more month? for colonoscopy screening.? Patient agreeable to plan of care we will make an appointment in 1 month for pre colonoscopy screening. He denies any trouble with anesthesia or sedation. His sister of CRC.. He suffers from constipation and he was sent dulcolax but this does not help. He only move his bowels every 2-3 days. The stools are also very hard. He has tried fiber, Miralax, senna and dulcolax w/o good effect. I will start him on Linzess and titrate to effect or s/e. He was educated about the dosing tiers and that we would be adjusting it and he could stop the dose if he has diarrhea. He denies being NKDA, he is unsure about the PCN and ketoconazole allergy, but remembers he is allergic to Seroquel. I will leave the allergies for safely He denies any cardiac problems and has not chronic breathing problems. TODAY'S VISIT [place] #declines His last scope there was a TA. He has CIC that is controlled with Linzess, no upper GI problems. he denies any cardiac or resp problems No anes or sed problems No ID problems. His sister CRC. [facility] Medical History BPH (benign prostatic hyperplasia) Chronic back pain Chronic idiopathic constipation Cocaine use Depression with anxiety Fibromyalgia Impaired fasting glucose Insomnia Tubular adenoma of colon Surgical History H/O colonoscopy Family History Father Myocardial infarction Sister Colon cancer Kidney disease Brother Cirrhosis Sister Diabetes Brother Partial sight in both eyes Mother No problems noted. Social History Alcohol intake: former Patient Tobacco Use Status: Never used Tobacco Current occupational status: retired Review of Systems Const Denies fatigue, Denies fever(s), Denies night sweats, Denies poor appetite and Denies weight loss Eyes Reports requires corrective lenses ENT Reports Normal hearing present, Denies dental pain, Denies dysphagia, Denies hearing loss, Denies mouth pain, Denies odynophagia, Denies throat swelling, Denies tongue swelling and Reports other (Dentition adequate) GI Details: Denies abdominal pain, Denies melena, Denies bloating, Denies hematochezia, Denies constipation, Denies GI cramping, Denies dysphagia, Denies excessive flatus, Denies early satiety, Denies heartburn, Denies diarrhea, Denies nausea, Denies odynophagia, Denies vomiting and Denies hematemesis Skin/Breast Denies pruritus, Denies lesions, Denies rash and Denies jaundice Neuro Reports Normal hearing present and Denies Abnormal speech present Endo Denies fatigue Aller/Immun Denies throat swelling and Denies tongue swelling Physical Exam Const General: cooperative, no acute distress, well developed and well groomed Nutritional Appearance: well nourished, obese and overweight Orientation/consciousness: oriented to person, oriented to place and oriented to time Limitations: No language barrier, ambulation with cane, ambulation with walker and wheelchair HEENT Head: Yes normocephalic and Yes atraumatic Eyes General: appearance normal, both eyes and all related structures Pupils: Equal, round and reactive pupils present Neck Neck: Yes normal visual inspection and Yes no lymphadenopathy Thyroid: Thyroid normal Resp Effort & Inspection: normal respiratory effort and able to speak in complete sentences Auscultation: clear to auscultation bilaterally Cardio Rate: regular rate Rhythm: abnormal rhythm with ectopic beats Heart sounds: Normal, physiologic split S2 sound present Peripheral pulses: radial pulses present and posterior tibial pulses present GI Inspection: No distended and No Abdominal panniculus present Palpation (GI): Soft to palpation, nontender, no guarding, not rigid and No hepatosplenomegaly present Percussion: Yes normal to percussion Auscultation: normal bowel sounds Rectal Exam - Male: Yes deferred Skin General skin exam: no rashes or lesions noted, turgor normal, skin not dry, no jaundice, No spider nevi and no striae Rashes: no rashes Nails: normal Neuro General: oriented to person, oriented to place and oriented to time Cranial nerves: Yes Equal, round and reactive pupils present and Yes Normal hearing present Speech: No Abnormal speech present Extrem General: Yes normal to inspection, No clubbing, No cyanosis and No edema Psych Appearance: grossly normal and well kempt Mental Status: mental status grossly normal Speech and movement: Normal speech and movement present Affect: normal affect Attitude: cooperative Thought process: Normal thought process present and not confabulating Thought content: Normal thought content present Insight: Fair insight present (Psych) Judgement: Fair judgement present (Psych) Assessment & Plan Assessment & Plan (1) Tubular adenoma of colon: Code(s): D12.6 - Benign neoplasm of colon, unspecified Category: Medical (2) Pre-op examination: Code(s): Z01.818 - Encounter for other preprocedural examination Category: Medical (3) Family history of colon cancer: Comment: sister Code(s): Z80.0 - Family history of malignant neoplasm of digestive organs Category: Medical Plan [place] #declines His last scope there was a TA. He has CIC that is controlled with Linzess, no upper GI problems. he denies any cardiac or resp problems No anes or sed problems No ID problems. His sister CRC. Orders: Orders Complete Blood Count Auto Diff Today D12.6 - Benign neoplasm of colon, unspecified, Z01.818 - Encounter for other preprocedural examination Comprehensive Met. Panel Today D12.6 - Benign neoplasm of colon, unspecified, Z01.818 - Encounter for other preprocedural examination Referrals GI Procedure Notification D12.6 - Benign neoplasm of colon, unspecified, Z01.818 - Encounter for other preprocedural examination Medications: New peg 3350-electrolytes 236-22.74-6.74 -5.86 gram (Golytely) until fecal effluent is clear; do not exceed a total volume of 2,000 mL 240 mL PO Q10M 4,000 mL 0RF 1 day Z12.11 - Encounter for screening for malignant neoplasm of colon bisacodyl (Dulcolax (bisacodyl)) 10 mg (2 x 5 mg) PO BEDTIME 4 tabs 0RF 2 days Coding Level of Care Code New Pt Level 3 (02982) Diagnoses Tubular adenoma of colon D12.6 Pre-op examination Z01.818 Family history of colon cancer Z80.0
[2025-02-09 11:24] VITALS: BP 139/96; PULSE 76; BMI 30.6
--- OUTSIDE RECORDS SUMMARY | 2025-02-09 12:42 | XMS_ITS | Encounter Summary ---
Author Organization [employer] Address [address] [place] [address] Care Team Providers Care System Integration Engineer Name Role Phone Hernan Dowd MD Primary Care Provider [phone]- [phone] Reason for Visit * Reason Comments Med Change Request Encounter Details Date Type Department Care Team ([facility] st Contact Info) Description 12/10/2022 Refill [facility] [address], [place] [phone] Imelda Rahman MD [address] [place] [address] Social History Tobacco Use Types Packs/Day Years Used Date Smoking Tobacco: Never Passive Smoke Exposure: Past Smokeless Tobacco: Never Sex and Gender Information Value Date Recorded Sex Assigned at Male 03/11/2022 10:14 AM EDT Legal Sex Male 10:14 AM EDT Gender Identity Male 03/11/2022 10:14 AM EDT Sexual Orientation Straight 03/11/2022 10 :14 AM EDT documented as of this encounter Miscellaneous Notes * Telephone Encounter - Imelda Rahman MD - 12/11/2022 10:59 AM EDT I called pharmacy and cancelled this medication prescription and gave her another verbally, since the one I want does not appear in Epic. Patient will have to pay about $20 out of pocket for the medication. No appropriate medications were covered by his insurance. documented in this encounter Plan of Treatment Not on file documented as of this encounter Visit Diagnoses Not on filedocumented in this encounter Care Teams System Integration Engineer Relationship Specialty Start Date End Date Hernan Dowd MD [address] [place] [id number] PCP - General Internal Medicine 06/23/12 documented as of this encounter
--- OUTSIDE RECORDS SUMMARY | 2025-02-09 12:43 | XMS_ITS | Clinical Summary ---
Author Organization 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, initial encounter (Primary Dx) Discharge Disposition: Home or Self Care 11/22/2024 10:54 AM EDT - 11/22/2024 1:51 PM EDT [facility] Emergency [address] [place] [phone] Cellulitis of great toe of right foot (Primary Dx); Tendonitis; Periarticular calcification Discharge Disposition: Home or Self Care from Last 3 Months Medical History Medical History Date Comments Anxiety Neuropathy Depression Social History Tobacco Use Types Packs/Day Years Used Date Smoking Tobacco: Never Assessed Sex and Gender Information Value Date Recorded Sex Assigned at Not on file Legal Sex Male 1:35 PM EDT Gender Identity Not on file Sexual Orientation Not on file Obstetrics History Last Filed Vital Signs Vital Sign Reading Time Taken Comments Blood Pressure 120/80 11/27/2024 7:39 AM EDT Pulse 68 11/27/2024 7:38 AM EDT Temperature 36.6 C (97.9 F) 11/27/2024 7:39 AM EDT Respiratory Rate 16 11/27/2024 7:38 AM EDT Oxygen Saturation 98% 11/27/2024 7:38 AM EDT Inhaled Oxygen Concentration - - Weight 93.9 kg (207 lb) 11/27/2024 7:39 AM EDT Height 170.2 cm (5' 7 ) 11/27/2024 7:39 AM EDT Body Mass Index 32.42 11/27/2024 7:39 AM EDT Plan of Treatment Health Maintenance Due Date Last Done Comments Zoster Vaccines (2 of 3) 01/11/2016 11/16/2015 Colorectal Cancer Screening: Colonoscopy 12/12/2023 Falls Risk Assessment 12/12/2023 Hepatitis C Screening 12/12/2023 Medicare Annual Wellness Visit 12/12/2023 Social Influencers of Health Screening 12/12/2023 Depression Screening 05/12/2024 COVID-19 Vaccine (3 - season) 2025 09/11/2020, 08/14/2020 Influenza Vaccine (#1) 2025 , 04/18/2020, 06/19/2018, Additional history exists RSV Immunization Adult Patients (1 - 1-dose 75+ series) 2028 DTaP,Tdap,and Td Vaccines (3 - Td or Tdap) 01/02/2029 01/02/2019, 07/05/2010 Cholesterol Screening (Lipid Panel) 01/20/2029 01/21/2024 Hepatitis B Vaccines Completed 07/02/2010, 04/03/2010, 04/24/2009, Additional history exists Pneumococcal Vaccine: 50+ Years Completed 01/21/2024, 06/12/2017, 12/18/2005 HIB Vaccines Aged Out No longer eligi ble based on patient's age to complete this topic HPV Vaccines Aged Out No longer eligi ble based on patient's age to complete this topic Hepatitis A Vaccines Aged Out No long er eligible based on patient's age to complete this topic IPV Vaccines Aged Out No longer eligi ble based on patient's age to complete this topic MMR Vaccines Aged Out No longer eligi ble based on patient's age to complete this topic Meningococcal ACWY Vaccine Aged Out N o longer eligible based on patient's age to complete this topic Meningococcal B Vaccine Aged Out No l onger eligible based on patient's age to complete this topic RSV Immunization Patients Under 20 months Aged Out No longer eligible based on patient's age to complete this topic Varicella Vaccines Aged Out No longer eligible based on patient's age to complete this topic Procedures Procedure Name Priority Date/Time Associated Diagnosis Comments CBC WITH AUTO DIFFERENTIAL STAT 11/27/2024 8:12 AM EDT URIC ACID STAT 11/27/2024 8:12 AM EDT CBC AND DIFFERENTIAL STAT 11/27/2024 8:12 AM EDT C REACTIVE PROTEIN, HIGH SENSITIVITY STAT 11/27/2024 8:12 AM EDT BASIC METABOLIC PANEL STAT 11/27/2024 8:12 AM EDT XR TOES 2+ VIEWS RIGHT STAT 11/27/2024 7:[address] LOWER EXTREMITY W CONTRAST RIGHT STAT 11/22/2024 12:35 PM EDT XR FOOT 3+ VIEWS RIGHT STAT 11/22/2024 8:54 AM EDT SEDIMENTATION RATE STAT Add-on 11/22/2024 8: 27 AM EDT CBC WITH AUTO DIFFERENTIAL STAT 11/22/2024 8:27 AM EDT URIC ACID STAT 11/22/2024 8:27 AM EDT BASIC METABOLIC PANEL STAT 11/22/2024 8:27 AM EDT CBC AND DIFFERENTIAL STAT 11/22/2024 8:27 AM EDT from Last 3 Months Results * (ABNORMAL) CBC auto differential (11/27/2024 8:12 AM EDT) Only the most recent of2 resultswithin the time period is included. WBC 3.9(L) 4.8 - 10.8 [facility] LAB HEMETOLOGY METHOD 11/27/2024 8:26 AM [facility] RBC 4.50 4.50 - 5.50 M/mcL LAB HEMETOLOGY METHOD 11/27/2024 8:26 AM [facility] Hemoglobin 13.5 13.5 - 17.5 g/dL LAB HEMETOLOGY METHOD 11/27/2024 8:26 AM [facility] Hematocrit 38.1(L) 42.0 - 54.0 % LAB HEMETOLOGY METHOD 11/27/2024 8:26 AM [facility] MCV 84.9 79.0 - 98.0 FL LAB HEMETOLOGY METHOD 11/27/2024 8:26 AM [facility] MCH 30.1 27.0 - 32.0 pcg LAB HEMETOLOGY METHOD 11/27/2024 8:26 AM [facility] MCHC 35.4 32.0 - 37.0 g/dL LAB HEMETOLOGY METHOD 11/27/2024 8:26 AM [facility] RDW 12.1 11.0 - 15.0 % LAB HEMETOLOGY METHOD 11/27/2024 8:26 AM [facility] Platelets 189 130 - 400 K/mcL LAB HEMETOLOGY METHOD 11/27/2024 8:26 AM [facility] MPV 10.4 7.0 - 11.0 FL LAB HEMETOLOGY METHOD 11/27/2024 8:26 AM [facility] NRBC 0.0 <1.0 % LAB HEMETOLOGY METHOD 11/27/2024 8:26 AM [facility] NRBC Absolute 0.00 <0.10 K/mcL LAB HEMETOLOGY METHOD 11/27/2024 8:26 AM [facility] Neutrophils Relative 57.0 % LAB HEMETOLOGY METHOD 11/27/2024 8:26 AM [facility] Lymphocytes Relative 28.8 % LAB HEMETOLOGY METHOD 11/27/2024 8:26 AM [facility] Monocytes Relative 10.9 % LAB HEMETOLOGY METHOD 11/27/2024 8:26 AM [facility] Eosinophils Relative 2.5 % LAB HEMETOLOGY METHOD 11/27/2024 8:26 AM [facility] Basophils Relative 0.5 % LAB HEMETOLOGY METHOD 11/27/2024 8:26 AM [facility] Immature Granulocytes Relative 0.3 % LAB HEMETOLOGY METHOD 11/27/2024 8:26 AM [facility] Neutrophils Absolute 2.24 1.50 - 7.00 K/mcL LAB HEMETOLOGY METHOD 11/27/2024 8:26 AM [facility] Lymphocytes Absolute 1.13 1.00 - 5.00 K/mcL LAB HEMETOLOGY METHOD 11/27/2024 8:26 AM [facility] Monocytes Absolute 0.43 0.20 - 1.00 K/mcL LAB HEMETOLOGY METHOD 11/27/2024 8:26 AM [facility] Eosinophils Absolute 0.10 0.00 - 0.50 K/mcL LAB HEMETOLOGY METHOD 11/27/2024 8:26 AM [facility] Basophils Absolute 0.02 0.00 - 0.20 K/mcL LAB HEMETOLOGY METHOD 11/27/2024 8:26 AM [facility] Immature Granulocytes Absolute 0.01 0.00 - 0.03 K/mcL LAB HEMETOLOGY METHOD 11/27/2024 8:26 AM [facility] Blood Venous blood specimen / Unknown Venipuncture / Unknown 11/27/2024 8:12 AM EDT 11/27/2024 8:22 AM EDT Marco Antonio CORONEL LAB BLOOD ORDERABLES Final R esult [facility] [address] [place] [address], [place] [phone] * High Sensitivity CRP (11/27/2024 8:12 AM EDT) CRP, High Sensitivity 28.50 mg/L LAB CHEMISTRY METHOD 11/27/2024 9:02 AM EDT [facility] Comment: Cardio CRP Relative Risk Categories Low <1.0 mg/L Average 1.0 - 3.0 mg/L High >3.0 mg/L Levels >10.0 mg/L should be ignored and repeated when the patient is stable and infection or inflammation is ruled out. Blood Venous blood specimen / Unknown Venipuncture / Unknown 11/27/2024 8:12 AM EDT 11/27/2024 8:22 AM EDT Marco Antonio [facility] LAB BLOOD ORDERABLES Final R esult Performing Organization Address City/[facility]/ZIP Co de Phone Number [facility] [address] [place] [address], [place] [phone] * Uric acid (11/27/2024 8:12 AM EDT) Only the most recent of2 resultswithin the time period is included. Uric Acid 5.7 3.7 - 9.2 mg/dL LAB CHEMISTRY METHOD 11/27/2024 8:56 AM EDT [facility] Blood Venous blood specimen / Unknown Venipuncture / Unknown 11/27/2024 8:12 AM EDT 11/27/2024 8:22 AM EDT us Marco Antonio CORON[facility] LAB BLOOD ORDERABLES Final R esult [facility] [address] [place] [address], * Basic Metabolic Panel (BMP) (11/27/2024 8:12 AM EDT) Only the most recent of2 resultswithin the time period is included. Sodium 140 133 - 145 mmol/L LAB CHEMISTRY METHOD 11/27/2024 8:56 AM [facility] Potassium 4.1 3.5 - 5.5 mmol/L LAB CHEMISTRY METHOD 11/27/2024 8:56 AM [facility] Chloride 106 96 - 110 mmol/L LAB CHEMISTRY METHOD 11/27/2024 8:56 AM [facility] CO2 30 21 - 32 mmol/L LAB CHEMISTRY METHOD 11/27/2024 8:56 AM [facility] Anion Gap 4 3 - 11 LAB CHEMISTRY METHOD 11/27/2024 8:56 AM [facility] Glucose 95 70 - 100 mg/dL LAB CHEMISTRY METHOD 11/27/2024 8:56 AM [facility] BUN 13 5 - 25 mg/dL LAB CHEMISTRY METHOD 11/27/2024 8:56 AM [facility] Creatinine 0.87 0.70 - 1.30 mg/dL LAB CHEMISTRY METHOD 11/27/2024 8:56 AM [facility] eGFR 92 >=60 mL/min/1. 73m2 LAB CHEMISTRY METHOD 11/27/2024 8:56 AM [facility] Comment:Calculation based on the Chronic Kidney Disease Epidemiology Collaboration (CKD-EPI) equation refit without adjustment for race. BUN/Creatinine Ratio 14.9 LAB CHEMISTRY METHOD 11/27/2024 8:56 AM [facility] Calcium 8.9 8.5 - 10.5 mg/dL LAB CHEMISTRY METHOD 11/27/2024 8:56 AM [facility] Blood Venous blood specimen / Unknown Venipuncture / Unknown 11/27/2024 8:12 AM EDT 11/27/2024 8:22 AM EDT Marco Antonio CORON[facility] LAB BLOOD ORDERABLES Final R esult [facility] [address] [place] [address], * XR Toes 2+ Views Right (11/27/2024 7:56 AM EDT) Anatomical Region Laterality Modality Lower Extremities, Toes Left Radiogra phic Imaging 11/27/2024 8:01 AM EDT Impressions 11/27/2024 8:05 AM EDT No acute fracture or subluxation. Soft tissue swelling greatest around the great toe. No specific radiographic evidence of osteomyelitis. Possibilities include soft tissue infection but an entity such as gout should also be considered. -------- FINAL REPORT -------- Dictated By: Naeem Chen Dictated Date: 11/27/2024 08:01 ET Assigned Physician: Naeem Chen Reviewed and Electronically Signed By: Naeem Chen Signed Date: 11/27/2024 08:05 ET Workstation ID: [id number] Transcribed By: Self Edit Transcribed Date: 11/27/2024 08:01 ET Narrative 11/27/2024 8:05 AM EDT EXAMINATION: RIGHT TOES CLINICAL INFORMATION: Acute pain. Clinical concern for osteomyelitis COMPARISON: 11/22/24 TECHNIQUE: Frontal view right foot. 2 views right great toe FINDINGS: There is no acute fracture or subluxation. There is soft tissue swelling greatest around the great toe. There is narrowing of the first IP joint. There is no definite bone destruction or aggressive periosteal new bone. Perhaps faint amorphous mineralization adjacent to the IP joints medially. There is possible erosion involving the distal second metatarsal. Procedure Note Naeem Chen MD - 11/27/2024 EXAMINATION: RIGHT TOES CLINICAL INFORMATION: Acute pain. Clinical concern for osteomyelitis COMPARISON: 11/22/24 TECHNIQUE: Frontal view right foot. 2 views right great toe FINDINGS: There is no acute fracture or subluxation. There is soft tissue swelling greatest around the great toe. There is narrowing of the first IP joint. There is no definite bone destruction or aggressive periosteal new bone. Perhaps faint amorphous mineralization adjacent to the IP joints medially.There is possible erosion involving the distal second metatarsal. IMPRESSION: No acute fracture or subluxation. Soft tissue swelling greatest around the great toe. No specific radiographic evidence of osteomyelitis. Possibilities include soft tissue infection but an entity such as goutshould also be considered. -------- FINAL REPORT -------- Dictated By: Naeem Chen Dictated Date: 11/27/2024 08:01 ET Assigned Physician: Naeem Chen Reviewed and Electronically Signed By: Naeem Chen Signed Date: 11/27/2024 08:05 ET Workstation ID: [id number] Transcribed By: Self Edit Transcribed Date: 11/27/2024 08:01 ET Marco Antonio CORONEL IMG XR PROCEDURES Final Resu lt * CT Lower Extremity w Contrast Right (11/22/2024 12:35 PM EDT) Anatomical Region Laterality Modality Lower Extremities Right Computed Tomog adele 11/22/2024 12:5 3 PM EDT Impressions 11/22/2024 1:00 PM EDT Impression: 1. Soft tissue swelling of the great toe. 2. 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 3. No cortical destruction or aggressive periostitis is seen. Garo CORONEL ([id number]) -------- FINAL REPORT -------- Dictated By: Araceli Melendrez Dictated Date: 11/22/2024 12:53 ET Assigned Physician: Araceli Melendrez Reviewed and Electronically Signed By: Araceli Melendrez Signed Date: 11/22/2024 13:00 ET Workstation ID: [id number] Transcribed By: Self Edit Transcribed Date: 11/22/2024 12:53 ET Narrative 11/22/2024 1:00 PM EDT History: Chronic right foot pain. Question great toe abscess. Technique: Helical volumetric imaging of the right foot was performed during the uneventful intravenous administration of 90 cc Isovue-370. DLP: 290.07 mGy/cm GE Etaoshipeed VCT Iterative reconstruction technique Findings: Mild soft tissue swelling of the great toe is noted. The osseous structures are intact. No cortical destruction or aggressive periostitis is seen. There is loss of cartilage space at the interphalangeal joint of the great toe. The first MTP joint is well-maintained. An amorphous periarticular calcification is seen adjacent to the interphalangeal joint of the great toe. There is loss of cartilage space in the interphalangeal joints of the second through fifth toes, with small marginal osteophytes. Tiny posterior and plantar calcaneal spurs are seen. Procedure Note Araceli Melendrez MD - 11/22/2024 History: Chronic right foot pain. Question great toe abscess. Technique: Helical volumetric imaging of the right foot was performedduring the uneventful intravenous administration of 90 cc Isovue-370. DLP: 290.07 mGy/cm GE Etaoshipeed VCT Iterative reconstruction technique Findings: Mild soft tissue swelling of the great toe is noted. The osseousstructures are intact. No cortical destruction or aggressive periostitisis seen. There is loss of cartilage space at the interphalangeal joint ofthe great toe. The first MTP joint is well-maintained. An amorphous periarticular calcification is seen adjacent to theinterphalangeal joint of the great toe. There is loss of cartilage space in the interphalangeal joints of thesecond through fifth toes, with small marginal osteophytes. Tiny posterior and plantar calcaneal spurs are seen. IMPRESSION: Impression: 1. Soft tissue swelling of the great toe. 2. 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 3. No cortical destruction or aggressive periostitis is seen. Garo CORONEL ([id number]) -------- FINAL REPORT -------- Dictated By: Araceli Melendrez Dictated Date: 11/22/2024 12:53 ET Assigned Physician: Araceli Melendrez Reviewed and Electronically Signed By: Araceli Melendrez Signed Date: 11/22/2024 13:00 ET Workstation ID: [id number] Transcribed By: Self Edit Transcribed Date: 11/22/2024 12:53 ET Rhina CORONEL IMG CT PROCEDURES Final Result * XR Foot 3+ Views Right (11/22/2024 8:54 AM EDT) Anatomical Region Laterality Modality Lower Extremities, Foot Right Radiogra phic Imaging 11/22/2024 8:58 AM EDT Impressions 11/22/2024 8:59 AM EDT No acute bony findings. -------- FINAL REPORT -------- Dictated By: Jose Ramon Dinero Dictated Date: 11/22/2024 08:58 ET Assigned Physician: Jose Ramon Dinero Reviewed and Electronically Signed By: Jose Ramon Dinero Signed Date: 11/22/2024 08:59 ET Workstation ID: [id number] Transcribed By: Self Edit Transcribed Date: 11/22/2024 08:58 ET Narrative 11/22/2024 8:59 AM EDT PROCEDURE: Radiographs of the right foot. HISTORY: OTHER pain, redness, swelling. COMPARISON: None. FINDINGS: Mild degenerative changes of the interphalangeal joints, most prominently the DIP joint of the 3rd toe. No fracture or malalignment. No bony erosion. Minimal plantar calcaneal spur. Mild degenerative irregularity of the talonavicular joint. No radiopaque foreign body. Soft tissue prominence adjacent to the 5th MTP joint. Procedure Note Jose Ramon Dinero MD - 11/22/2024 PROCEDURE: Radiographs of the right foot. HISTORY: OTHER pain, redness, swelling. COMPARISON: None. FINDINGS: Mild degenerative changes of the interphalangeal joints, most prominentlythe DIP joint of the 3rd toe. No fracture or malalignment. No bonyerosion. Minimal plantar calcaneal spur. Mild degenerative irregularityof the talonavicular joint. No radiopaque foreign body. Soft tissueprominence adjacent to the 5th MTP joint. IMPRESSION: No acute bony findings. -------- FINAL REPORT -------- Dictated By: Jose Ramon Dinero Dictated Date: 11/22/2024 08:58 ET Assigned Physician: Jose Ramon Dinero Reviewed and Electronically Signed By: Jose Ramon Dinero Signed Date: 11/22/2024 08:59 ET Workstation ID: [id number] Transcribed By: Self Edit Transcribed Date: 11/22/2024 08:58 ET us Nasim Dougherty MD IMG XR PROCEDURES Final Res ult * Sedimentation rate (11/22/2024 8:27 AM EDT) Sed Rate 15 0 - 20 mm/hr LAB HEMETOLOGY METHOD 11/22/2024 11:59 AM EDT [facility] Blood Venous blood specimen / Unknown Venipuncture / Unknown 11/22/2024 8:27 AM EDT 11/22/2024 9:39 AM EDT us Rhina CORONEL LAB BLOOD ORDERABLES Fin al Result [facility] [address] [place] [address], from Last 3 Months Insurance [facility] MEDICARE Member Subscriber Plan / Payer (Ef fective 2021-Present) Name:Brannon [place] Relation to Subscriber:Self Name:Brannon [place] Payer ID:[id number] Group ID:Not on file Type:Not on file Address: [place] [address] [address] [id number] Care Teams Client Service Representative Relationship Specialty Start Date End Date Physician, Pcp Unknown PCP - General 11/22/24
--- OUTSIDE RECORDS SUMMARY | 2025-02-09 12:43 | XMS_ITS | Clinical Summary ---
Author Organization [employer] Address [address] [facility] [address] [place] [address] Care Team Providers Care Offset Plate Maker Name Role Phone Hernan Dowd MD Primary Care Provider Allergies Active Allergy Reactions Criticality Noted Date Comments Hydrocodone Dizziness 10/24/2019 Ketoconazole Rash Low 07/13/2012 Quetiapine Palpitations Low 07/13/2012 Medications Multiple Vitamin (Daily-Josefa Multivitamin) tablet TAKE 1 TABLET BY MOUTH EVERY DAY ONE DOSE 90 tablet 3 10/01/19 23 Active gabapentin (Neurontin) 100 MG capsule TAKE 1 CAPSULE BY MOUTH EVERYDAY AT BEDTIME 08/15/19 23 Active Urea (Dermal Therapy Finger Care) 20 % lotion Apply small amount of 20% urea cream to affected area twice daily. 85 mL 4 12/12/19 23 Active amitriptyline (Elavil) 10 MG tabletIndication s:Polyneuropathy Take 3 tablets (30 mg) by mouth at bedtime. 90 tablet 3 08/19/19 25 Active linaCLOtide (Linzess) 145 MCG capsuleIndicatio ns:Chronic constipation TAKE 1 CAPSULE (145 MCG) BY MOUTH BEFORE BREAKFAST. 30 capsule 11 10/13/19 25 Active amitriptyline (Elavil) 10 MG tabletIndication s:Polyneuropathy 1 tablet once a day at bedtime for 1 week, 2 tabs at nighttime the following week, 3 tabs at nighttime the following week 120 tablet 3 12/01/19 25 Active colchicine 0.6 MG tabletIndication s:Acute gout due to other secondary cause involving toe of right foot Take 1 tablet (0.6 mg) by mouth 2 times daily. 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 Impaired fasting glucose 07/13/2012 Benign prostatic hyperplasia 07/13/2008 Backache 07/13/2006 Osteoarthritis 07/13/2006 Encounters Date Type Department Care Team Description 01/29/2025 Refill [facility] CHC MED & PEDS [address] [place] [address] Hernan Dowd MD Annual physical exam 12/10/2024 Refill [facility] MED & PEDS [address] [place] [address] Hernan Dowd MD Acute gout due to other secondary cause involving toe of right foot 11/30/2024 1:30 PM EDT Office Visit [facility] CHC MED & PEDS [address] [place] [address] Hernan Dowd MD Acute gout due to other secondary cause involving toe of right foot (Primary Dx); Polyneuropathy 11/30/2024 Travel 11/29/2024 Telephone [facility] MED & PEDS [address] [place] [address] Hernan Dowd MD Chart Prep 11/23/2024 Telephone [facility] MEDICINE [address] [place] [address] Hernan Dowd MD ER Follow-up 11/14/2024 Refill [facility] ED MED & PEDS [address] [place] [address] Hernan Dowd MD Polyneuropathy from Last 3 Months Immunizations Immunization Administration Dates Next Due Hep B, adult 07/02/2010, 0,04/24/2009,10/13 Influenza High-dose Quadriva lent Preservative Free 04/18/2020 Influenza injectable quadriv alent preservative free 06/23/2017 Influenza, High Dose Seasona l, Preservative Free 01/21/2024 Influenza, IIV3, injectable 02/12/2011, 6 Influenza, trivalent, adjuvanted 06/19/2018 Moderna Covid-19 Vaccine 12+ 09/11/2020,08/15/19 21 Pneumococcal Conjugate PCV 13 06/12/2017 Pneumococcal Conjugate PCV 20 01/21/2024 Pneumococcal Polysaccharide PPSV23 12/18/2005 TD (adult), 2 Lf tetanus tox oid, preservative free, adsorbed 01/02/2019 Tdap 07/05/2010 Zoster, live 11/16/2015 Social History Tobacco Use Types Packs/Day Years Used Date Smoking Tobacco: Never Passive Smoke Exposure: Past Smokeless Tobacco: Never Tobacco Cessation:Counseling Given: Not Answered Depression Answer Date Recorded Patient Health Questionnaire-9 Score 4 01/21/2024 Patient Health Questionnaire-9 Score 4 01/21/2024 Last PHQ-9: Questionnaire Data Not on file 0 01/21/2024 Housing Stability Answer Date Recorded What is your housing situation today? I have rosita baltazar 07/05/[address] you li ve. Do you have problems with any of the following? None of the above 07/05/2024 Food Insecurity Answer Date Recorded Within the past 12 months, y ou worried that your food would run out before you got money to buy more: Sometimes True 2024 Within the past 12 months,th e food you bought just didn't last and you didn't have enough money to get more: Sometimes True 07/05/2024 Utilities Answer Date Recorded In the past 12 months, has t he electric, gas, oil or water company threatened to shut off services in your home? No 07/05/2024 Depression Answer Date Recorded Patient Health Questionnaire-2 Score 2 01/21/2024 Internet Access Answer Date Recorded Internet Access Q1 Yes 07/05/2024 Internet Access Q2 Not on file 07/05/2024 Sex and Gender Information Value Date Recorded Sex Assigned at Male 03/11/2022 10:14 AM EDT Legal Sex Male 10:14 AM EDT Gender Identity Male 03/11/2022 10:14 AM EDT Sexual Orientation Straight 03/11/2022 10 :14 AM EDT Last Filed Vital Signs Vital Sign Reading Time Taken Comments Blood Pressure 123/79 11/30/2024 1:18 PM EDT Pulse 45 11/30/2024 1:18 PM EDT Temperature 36.5 C (97.7 F) 11/30/2024 1:18 PM EDT Respiratory Rate 20 11/30/2024 1:18 PM EDT Oxygen Saturation 98% 11/30/2024 1:18 PM EDT Inhaled Oxygen Concentration - - Weight 88.9 kg (196 lb) 11/30/2024 1:18 PM EDT Height 168.3 cm (5' 6.25 ) 11/30/2024 1:18 PM ED T Body Mass Index 31.4 11/30/2024 1:18 PM EDT Plan of Treatment Health Maintenance Due Date Last Done Comments CT Colonography 1953 Colonoscopy 1953 Colorectal Cancer Screening 1953 FIT DNA/Cologuard 1953 FIT 1953 FOBT 1953 SDOH Screening 1955 Sigmoidoscopy 1955 Zoster Vaccines (2 of 3) 01/11/2016 11/16/2015 COVID-19 Vaccine ( season) 2025 03/20/2021, 09/11/2020, 08/14/2020 Influenza Vaccine (#1) 2025 , 04/18/2020, 06/19/2018, Additional history exists Depression Screening 01/20/2025 01/21/2024, 01/21/20 Alcohol/Substance Use Screening 07/05/2025 07/05/2024 Tobacco Screening 11/30/2025 11/30/2024 RSV Patients and Patients Aged 60 years or older (1 - 1-dose 75+ series) 2028 DTaP/Tdap/Td Vaccines (3 - Td or Tdap) 01/02/2029 01/02/2019, 07/05/2010 Lipid Panel 01/20/2029 01/21/2024, 11/07/2021 Hepatitis B Vaccines Completed 07/02/2010, 04/03/2010, 04/24/2009, Additional history exists Hepatitis C Screening Completed 11/07/2021 Pneumococcal Vaccine: 50+ Years Completed 01/21/2024, 06/12/2017, [...] patient's age to complete this topic Meningococcal Vaccine Aged Out No rosendo vinod eligible based on patient's age to complete this topic RSV under 20 months Aged Out No longe r eligible based on patient's age to complete this topic Rotavirus Vaccines Aged Out No longer eligible based on patient's age to complete this topic Procedures Procedure Name Priority Date/Time Associated Diagnosis Comments LIPID PANEL, STANDARD Routine 01/21/2024 11:05 AM EDT Impaired fasting glucose [facility] HISTORICAL HEPATITIS C AB W/REFL TO HCV RNA, QN, PCR Routine 11/07/2021 8:31 AM EDT from Last 3 Months or Most Recently Relevant to Health Maintenance Results * (ABNORMAL) Lipid Panel, Standard (01/21/2024 11:05 AM EDT) Triglycerides 181(H) <150 mg/dL [facility] Comment:Desirable Triglyceri de: less than 150 mg/dLBorderline High Triglyceride 150-199 mg/dLHigh Triglyceride: 200-499 mg/dLVery High Triglyceride: greater than or equal to 5OO mg/dL Cholesterol 182 <200 mg/dL [facility] Comment:Desirable Cholestero l: less than 200 mg/dLBorderline High Cholesterol: 200-239 mg/dLHigh Cholesterol: greater than 239 mg/dL LDL Cholesterol Calculated 115(H) <100 mg/dL [facility] Comment:Desirable LDL: less than 100 mg/dLNear Optimal/Above Optimal LDL: 110- 129 mg/dLBorderline High LDL: 130-159 mg/dLHigh LDL: 160-189 mg/dLVery High LDL: greater than or equal to 190 mg/dL HDL Cholesterol 31(L) >40 mg/dL [facility] Comment:Desirable HDL: great er than 40 mg/dL Note: This HDL assay may give artificially low results in patients with liver disease. Blood Venous blood specimen / Unknown 01/21/2024 11:05 AM EDT 01/21/2024 1:46 PM EDT us Hernan Dowd MD LAB BLOOD ORDERABLES Final Result Performing Organization Address City/[facility]/ZIP Co de Phone Number [facility] [address] [place] [phone] [phone] * HEPATITIS C AB W/REFL TO HCV RNA, QN, PCR (11/07/2021 8:31 AM EDT) HEPATITIS C ANTIBODY NON-REACT [facility] NON-REACT [facility] INDEX 0.02 <1.00 [facility] Comment: HCV antibody was non-reactive. There is no laboratory evidence of HCV infection. In most cases, no further action is required. However, if recent HCV exposure is suspected, a test for HCV RNA (test code 06829) is suggested. For additional information please refer to http://education.[employer]/faq/PFM17d6 (This link is being provided for informational/ educational purposes only.) 11/07/2021 8:31 AM EDT us Hernan Dowd MD HISTORICAL/NON ORDERABLE LA BS Final Result Performing Organization Address City/[facility]/ZIP Co de Phone Number [facility] [address] from Last 3 Months or Most Recently Relevant to Health Maintenance Insurance [facility] [employer] (HMO D-SNP) [place] [id number] Care Teams Offset Plate Maker Relationship Specialty Start Date End Date Hernan Dowd MD [address] [place] [id number] PCP - General Internal Medicine 06/23/12
--- OUTSIDE RECORDS SUMMARY | 2025-02-09 12:43 | XMS_ITS | Encounter Summary ---
Author Organization [employer] Address [address] [place] [address] [address] [place] [address] Care Team Providers Care Horseradish Maker Name Role Phone Hernan Dowd MD Primary Care Provider [phone] Encounter Details Date Type Department Care Team ([facility] st Contact Info) Description 09/30/2022 Orders Only [facility] CHC MED & PEDS [address] [place], [place] [phone] Jyoti Cornejo LPN Social History Tobacco Use Types Packs/Day Years Used Date Smoking Tobacco: Never Smokeless Tobacco: Never Sex and Gender Information Value Date Recorded Sex Assigned at Male 03/11/2022 10:14 AM EDT Legal Sex Male 10:14 AM EDT Gender Identity Male 03/11/2022 10:14 AM EDT Sexual Orientation Straight 03/11/2022 10 :14 AM EDT COVID-19 Exposure Response Date Recorded In the last 10 days, have yo u been in contact with someone who was confirmed or suspected to have Coronavirus/COVID-19? No / Unsure 09/30/2022 11:15 AM EDT documented as of this encounter Plan of Treatment Not on file documented as of this encounter Visit Diagnoses Not on filedocumented in this encounter Care Teams Horseradish Maker Relationship Specialty Start Date End Date Hernan Dowd MD [address] [place] [address] PCP - General Internal Medicine 06/23/12 documented as of this encounter
--- OUTSIDE RECORDS SUMMARY | 2025-02-09 12:43 | XMS_ITS | Encounter Summary ---
Author Organization [employer] Address [address] [place] [address] [address] [place] [address] Care Team Providers Care Grease Remover Name Role Phone Hernan Dowd MD Primary Care Provider [phone] Reason for Visit * Reason Comments Med Refill Encounter Details Date Type Department Care Team ([facility] st Contact Info) Description 12/10/2024 Refill [facility] MED & PEDS [address] [place], [place] [phone] Hernan Dowd MD [address] [place] [address] Acute gout due to other secondary cause involving toe of right foot Social History Tobacco Use Types Packs/Day Years Used Date Smoking Tobacco: Never Passive Smoke Exposure: Past Smokeless Tobacco: Never Depression Answer Date Recorded Patient Health Questionnaire-9 [...] documented as of this encounter Visit Diagnoses Diagnosis Acute gout due to other secondary cause involving toe of right foot documented in this encounter Additional Health Concerns Assessment Noted Time PHQ-9 Depression Total Score: 4 01/21/20 24 10:48 AM EDT documented as of this encounter Care Teams Grease Remover Relationship Specialty Start Date End Date Hernan Dowd MD [address] [place] [id number] PCP - General Internal Medicine 06/23/12 documented as of this encounter
--- OUTSIDE RECORDS SUMMARY | 2025-02-09 12:43 | XMS_ITS | Encounter Summary ---
Author Organization [employer] Address [address] [place] [address] [address] [place] [address] Care Team Providers Care Wrist Liner Name Role Phone Hernan Dowd MD Primary Care Provider [phone] Reason for Visit * Reason Comments Med Refill Encounter Details Date Type Department Care Team ([facility] st Contact Info) Description 11/14/2024 Refill [facility] CHC MED & PEDS [address] [place], [place] [phone] Hernan Dowd MD [address] [place] [address] Polyneuropathy Social History Tobacco Use Types Packs/Day Years [...] as of this encounter Visit Diagnoses Diagnosis Polyneuropathy Unspecified hereditary and idiopathic peripheral neuropathy documented in this encounter Additional Health Concerns Assessment Noted Time PHQ-9 Depression Total Score: 4 01/21/20 24 10:48 AM EDT documented as of this encounter Care Teams Wrist Liner Relationship Specialty Start Date End Date Hernan Dowd MD [address] [place] [address] PCP - General Internal Medicine 06/23/12 documented as of this encounter
== END 2025-02-09 12:06 | disposition home or self-care (01) ==
LOC: HO.HGI 11:08
PROVIDERS: PCP Internal Medicine; Visit Provider Nurse Practitioner
DX: Z01.818 Encounter for other preprocedural examination (principal); Z12.11 Encounter for screening for malignant neoplasm of colon; Z86.0100 Personal history of colon polyps, unspecified; Z80.0 Family history of malignant neoplasm of digestive organs
CPT/HCPCS: 99203

== ENCOUNTER → 2025-02-09 11:07 | Outpatient (BNVA) | payer OTHER, SELFPAY | PROVIDERS: PCP Internal Medicine; Visit Provider Nurse Practitioner | DX: Z01.818 Encounter for other preprocedural examination (principal); D12.6 Benign neoplasm of colon, unspecified; Z80.0 Family history of malignant neoplasm of digestive organs | CPT/HCPCS: 99202 ==